=== PATIENT | male | born 1965 | race Caucasian/White ===

== ENCOUNTER 2022-03-11 16:16 | Inpatient (IN) | payer OTHER ==
[~2022-03-11] VITALS: Ht 180.3 cm; Wt 112.9 kg
[2022-03-11 16:17] VITALS: BP 156/68
--- NOTE | 2022-03-11 16:30 | NUR ---
BIBA BLS TO ER BED 4
[2022-03-11] MEDS ORDERED: MORPHINE SULFATE 4 MG/ML SYR IVP ONE ×2 (17:20→20:35)
[2022-03-11] MEDS ORDERED: ONDANSETRON 4 MG/2 ML VIAL IVP ONE (17:20)
[2022-03-11 17:26] LABS: BASOPHILS % (AUTO) 0.9 % (0.0-2.0); EOSINOPHILS # (AUTO) 0.2 K/uL (0-0.4); EOSINOPHILS % (AUTO) 3.8 % (0.0-4.0); HEMOGLOBIN 7.4 g/dL (12.0-18.0); LYMPHOCYTES # (AUTO) 1.9 K/uL (2.0-11.5); LYMPHOCYTES % (AUTO) 32.2 % (20.5-51.1); MEAN CORPUSCULAR HEMOGLOBIN 24 pg (27-31); MEAN CORPUSCULAR HGB CONC 32 g/dL (33-37); MEAN CORPUSCULAR VOLUME 75.1 fL (80-94); MONOCYTES # (AUTO) 0.4 K/uL (0.8-1.0); MONOCYTES % (AUTO) 6.4 % (1.7-9.3); NEUTROPHILS # (AUTO) 3.3 K/uL (1.8-7.7); NEUTROPHILS % (AUTO) 56.7 % (42.2-75.2); PLATELET COUNT (AUTO) 328 K/uL (140-450); RED BLOOD CELL COUNT(AUTO) 3.06 MIL/uL (4.20-6.10); RED CELL DISTRIBUTION WIDTH 22.6 % (11.6-13.7); WHITE BLOOD COUNT (AUTO) 5.8 K/uL (4.8-10.8)
--- NOTE | 2022-03-11 17:32 | NUR ---
Radiology at bedside.
--- NOTE | 2022-03-11 17:32 | NUR ---
Dr. Brown made aware that pt has a PICC line in place and that he ordered morphone and zofran for IV use. Dr. Brown stated "It is okay to use the PICC line for medications ordered".
--- NOTE | 2022-03-11 17:45 | NUR ---
56 y/o male biba with c/o of back pain. Patient has a history of chronic low back pain. Patient also has pain and swelling to abdominal sides. Patient is noted with edema to right lower extremity and swelling to AKA of left extremity. Patient has a PICC line in place. Medical History: DM, CHF, HTN, LEFT AKA ALLERGY: CIPROFLOXACIN
[2022-03-11 18:31] LABS: ALBUMIN 2.2 g/dL (3.4-5.0); ANION GAP 12.3 (8-16); CARBON DIOXIDE 27.6 mmol/L (21-32); POTASSIUM 3.9 mmol/L (3.5-5.1); TOTAL BILIRUBIN 3.6 mg/dL (0.0-1.0)
--- NOTE | 2022-03-11 18:38 | NUR ---
X-Ray at bedside
--- NOTE | 2022-03-11 18:53 | NUR ---
Dr. Dumont re-evaluating patient at bedside.
[2022-03-11] MEDS ORDERED: ALBUTEROL 0.083% 2.5 MG/3 ML NEBU INH ONE (19:00)
--- NOTE | 2022-03-11 19:02 | NUR ---
Obtained ALMAZ specimen, walked to lab.
[2022-03-11] MEDS ORDERED: FUROSEMIDE 100 MG/10 ML VIAL IVP ONE (19:05)
--- NOTE | 2022-03-11 19:06 | NUR ---
RT AT BEDSIDE PROVIDING PT A BREATHING TX.
--- NOTE | 2022-03-11 19:25 | NUR ---
Pt report given to YUDI Espinoza. Transfer of care at this time.
[2022-03-11] MEDS ORDERED: LEVA0.043 INH (20:27)
[2022-03-11] MEDS ORDERED: SENN-73 PO (20:27)
[2022-03-11] MEDS ORDERED: ZOLP5TAB1 PO (20:27)
[2022-03-11] MEDS ORDERED: VITA-16 PO (20:27)
[2022-03-11] MEDS ORDERED: DOCU-299 PO (20:27)
[2022-03-11] MEDS ORDERED: PRO5 PO (20:27)
[2022-03-11] MEDS ORDERED: ALBU-118 INH (20:27)
[2022-03-11] MEDS ORDERED: METF-352 PO (20:27)
[2022-03-11] MEDS ORDERED: TRAZ-343 PO (20:27)
[2022-03-11] MEDS ORDERED: NAFC1SOL1 IV (20:27)
[2022-03-11] MEDS ORDERED: FOLIC ACID PO (20:27)
[2022-03-11] MEDS ORDERED: SUCR1TAB6 PO (20:27)
[2022-03-11] MEDS ORDERED: ATOR20TA PO (20:27)
[2022-03-11] MEDS ORDERED: HYDR-5080 PO (20:27)
[2022-03-11] MEDS ORDERED: ASPI-1129 PO (20:27)
[2022-03-11] MEDS ORDERED: FERR325E14 PO (20:27)
[2022-03-11] MEDS ORDERED: LID5T TP (20:27)
[2022-03-11] MEDS ORDERED: FURO-570 PO (20:27)
[2022-03-11] MEDS ORDERED: LACT1CAP63 PO (20:27)
[2022-03-11] MEDS ORDERED: GLIM1TAB23 PO (20:27)
[2022-03-11] MEDS ORDERED: FLONAS NS (20:27)
[2022-03-11] MEDS ORDERED: [UNRECOGNIZED DRUG - CODE] IJ (20:27)
[2022-03-11] MEDS ORDERED: PANT40EC PO (20:27)
--- NOTE | 2022-03-11 21:00 | NUR ---
Patient will be admitted to care of DR. REIS. Admited to TELEMETRY. Will go to room 105 A. Belongings list completed. Report to KRUNAL.
--- NOTE | 2022-03-11 21:10 | NUR ---
PT WAS ADMIT TO [facility] UNIT FROM [facility]. PT DIAGNOSED WITH CHF AND CKD. PT IS AOX4, CAN VERBALIZE NEEDS AND ABLE TO FOLLOW COMMANDS. PT HAS ABOVE THE KNEE AMPUTATION AND BEDBOUND. PT HAS LEFT UPPER ARM PICC LINE. PT HAS EDEMA ON LEFT STUMP, RIGHT LOWER LEG AND BILATERAL SIDES. PT ORIENTED TO HOSPITAL/ROOM, BED BUTTONS, AND CALL LIGHT. ALL SAFETY MEASURES IMPLEMENTED. CALL LIGHT WITHIN REACH, BED WHEELS LOCKED AND LOW POSITION OF BED PLACED. WILL CONTINUE TO MONITOR THE PT.
[2022-03-11] MEDS ORDERED: DOCUSATE SODIUM 100 MG GELCAP PO PRN (22:20)
[2022-03-11] MEDS ORDERED: ONDANSETRON 4 MG/2 ML VIAL IM/IVP PRN (22:20)
[2022-03-11] MEDS ORDERED: HYDROcodone/APAP 7.5/325 MG 1 TAB PO PRN (22:20)
[2022-03-11] MEDS ORDERED: POTASSIUM CHLORIDE 10 MEQ TABER PO PRN (22:20)
[2022-03-11] MEDS ORDERED: ZOLPIDEM 5 MG TAB PO PRN (22:20)
[2022-03-11] MEDS ORDERED: ACETAMINOPHEN 325 MG TAB PO PRN (22:20)
[2022-03-11] MEDS ORDERED: guaiFENesin DM 200/20 MG-10 ML 10 ML UDC PO PRN (22:20)
[2022-03-11] MEDS ORDERED: DEXTROSE 50% 50 ML SYR IVP PRN (22:30)
[2022-03-11 23:34] LABS: PROTHROMBIN TIME 12.9 secs (10.8-13.4)
[2022-03-12] VITALS: BP 119/76
--- NOTE | 2022-03-12 | NUR ---
TROPONIN LEVEL 291, NOTIFIED DR. REIS WITH NEW ORDER OF HEPARIN 5,000 UNITS SUBCUTANEOUS. ORDER NOTED AND CARRIED OUT.
[2022-03-12 00:12] LABS: CHOL/HDL RATIO 4.1 (1-4.5); FREE T4 (FREE THYROXINE) 1.17 ng/dL (0.76-1.46); MAGNESIUM 1.8 mg/dL (1.8-2.4); PHOSPHORUS 3.2 mg/dL (2.5-4.9); THYROID STIMULATING HORMONE 0.75 uIU/mL (0.34-3.74)
[2022-03-12] MEDS: MORPHINE SULFATE 2 MG/ML SYR IVP PRN ×4 (00:30→18:30)
[2022-03-12 01:23] LABS: APPEARANCE,URINE CLEAR (CLEAR); BILIRUBIN,URINE NEGATIVE (NEGATIVE); BLOOD, URINE TRACE-I (NEGATIVE); COLOR,URINE YELLOW (YELLOW); LEUKOCYTE ESTERASE ,URINE 1+ (NEGATIVE); NITRITE, URINE POSITIVE (NEGATIVE); UGLUCOSE NEGATIVE (NEGATIVE)
[2022-03-12 01:28] LABS: RBC,URINE 0-5 /HPF (0-5); WBC,URINE 20-60 /HPF (0-5)
--- NOTE | 2022-03-12 01:30 | NUR ---
PT COMPLAIN FOR BACK PAIN, PRN PAIN MEDICATION PER MD ORDER WAS GIVEN. HEPARIN WAS ALSO GIVEN PER MD ORDER. PT TOLERATING IT WELL. ALL SAFETY MEASURES IMPLEMENTED. CALL REACH WITHIN REACH. WILL CONTINUE TO MONITOR THE PT.
[2022-03-12 01:36] LABS: BARBITURATE, URINE NEGATIVE ng/ml (NEG <=200); BENZODIAZEPINE, URINE NEGATIVE ng/mL (NEG <=200); CANNABINOID, URINE POSITIVE ng/mL (NEG <=50); COCAINE, URINE NEGATIVE ng/mL (NEG <=300); PHENCYCLIDINE SCREEN,URINE NEGATIVE ng/mL (NEG <=25)
[2022-03-12 01:37] LABS: OPIATE, URINE POSITIVE ng/mL (NEG <=2000)
[2022-03-12 04:00] VITALS: BP 125/80
--- NOTE | 2022-03-12 04:30 | NUR ---
PT IS ON SLEEP WITH CPAP. CHEST RISE AND FALL SYMMETRICALLY NOTED. RESPIRATION ARE EVEN AND UNLABORED SATING AT 98% WITH SINUS RHYTHM/1ST DEGREE AV BLOCK/ST DEPRESSION. CALL LIGHT WITHIN REACH. ALL SAFETY MEASURES IMPLEMENTED. WILL CONTINUE TO MONITOR THE PT.
[2022-03-12 05:47] LABS: BASOPHILS # (AUTO) 0.1 K/uL (0.00-0.22); BASOPHILS % (AUTO) 1.3 % (0.0-2.0); EOSINOPHILS # (AUTO) 0.3 K/uL (0-0.4); EOSINOPHILS % (AUTO) 4.2 % (0.0-4.0); HEMATOCRIT 24.2 % (36-52); HEMOGLOBIN 7.7 g/dL (12.0-18.0); LYMPHOCYTES # (AUTO) 2.1 K/uL (2.0-11.5); LYMPHOCYTES % (AUTO) 33.7 % (20.5-51.1); MEAN CORPUSCULAR HEMOGLOBIN 24 pg (27-31); MEAN CORPUSCULAR HGB CONC 32 g/dL (33-37); MEAN CORPUSCULAR VOLUME 76.4 fL (80-94); MONOCYTES # (AUTO) 0.6 K/uL (0.8-1.0); MONOCYTES % (AUTO) 8.7 % (1.7-9.3); NEUTROPHILS # (AUTO) 3.3 K/uL (1.8-7.7); NEUTROPHILS % (AUTO) 52.1 % (42.2-75.2); PLATELET COUNT (AUTO) 317 K/uL (140-450); RED BLOOD CELL COUNT(AUTO) 3.16 MIL/uL (4.20-6.10); RED CELL DISTRIBUTION WIDTH 22.7 % (11.6-13.7); WHITE BLOOD COUNT (AUTO) 6.3 K/uL (4.8-10.8)
--- NOTE | 2022-03-12 06:29 | NUR ---
PT COMPLAIN BACK PAIN WITH THE SCALE OF 8/10. PRN PAIN MEDICATION WAS GIVEN PER MD ORDER. PT TOLERATING IT WELL. WILL CONTINUE TO MONITOR.
[2022-03-12] MEDS: BLOOD GLUCOSE MONITORING 1 DEV DEV FS SCH ×4 (06:43→20:24)
--- NOTE | 2022-03-12 06:43 | NUR ---
PT BLOOD GLUCOSE IS 109. NO INSULIN COVERAGE NEEDED. ALL SAFETY MEASURES IMPLEMENTED. WILL CONTINUE TO MONITOR.
[2022-03-12 06:57] LABS: ANION GAP 15.4 (8-16); CARBON DIOXIDE 26.4 mmol/L (21-32); CREATININE 3.3 mg/dL (0.6-1.3); POTASSIUM 3.8 mmol/L (3.5-5.1)
--- NOTE | 2022-03-12 07:15 | NUR ---
Received SBAR report from night RN, all cares assumed. Pt resting in bed, awake and alert. Bed in low, locked position, call light within reach. Pt denies any needs at this time.
--- NOTE | 2022-03-12 07:16 | NUR ---
CHECKED ON PT. HE WAS CURRENTLY SLEEPING WITH HIS PERSONAL CPAP MACHINE BROUGHT IN FROM HOME. NO DISTRESS AND RESTING COMFORTABLY.
--- NOTE | 2022-03-12 07:20 | NUR ---
PT IS STABLE. ENDORSED PT TO MORNING SHIFT NURSE FOR THE CONTINUITY OF CARE.
[2022-03-12 08:00] VITALS: BP 129/77
[2022-03-12] MEDS ORDERED: GLIMEPIRIDE 2 MG TAB PO SCH (08:00)
[2022-03-12] MEDS: metFORMIN 500 MG TAB PO SCH ×2 (08:06→16:57)
[2022-03-12] MEDS: PANTOPRAZOLE 40 MG TABEC PO SCH (08:07)
[2022-03-12] MEDS ORDERED: ECOTRIN 81 MG TABEC PO SCH (09:00)
[2022-03-12] MEDS ORDERED: FUROSEMIDE 20 MG/2 ML VIAL IVP SCH (09:00)
[2022-03-12] MEDS ORDERED: GLIMEPIRIDE PO SCH (09:00)
[2022-03-12] MEDS ORDERED: METFORMIN HCL 1000 MG PO SCH (09:00)
--- NOTE | 2022-03-12 11:00 | NUR ---
SCREEN FOR LOW RADHA SCALE AT RISK, CONTINUE TO FOLLOW PRESSURE ULCER PREVENTION INTERVENTIONS. -TURN AND REPOSITION PATIENT Q 2H, ASSIST IF NEEDED -ASSESS AND MONITOR SKIN CONDITION DURING POSITION CHANGES -KEEP SKIN CLEAN AND DRY AT ALL TIMES.
[2022-03-12 12:00] VITALS: BP 130/78
[2022-03-12] MEDS: APIXABAN 2.5 MG TAB PO SCH ×2 (13:55→20:23)
[2022-03-12 16:00] VITALS: BP 121/78
[2022-03-12] MEDS: FUROSEMIDE 40 MG/4 ML VIAL IVP SCH (16:57)
[2022-03-12] MEDS: NAFCILLIN 1,000 MG in DEXTROSE 5% 50 ML IV SCH ×3 (17:54→23:13)
--- NOTE | 2022-03-12 19:39 | NUR ---
SBAR REPORT GIVEN TO LORNE BAGLEY, ALL CARES ENDORSED.
--- NOTE | 2022-03-12 19:45 | NUR ---
RECEIVED REPORT FROM AM RN FOR CONTINUITY OF CARE. PT IS STABLE IN BED. L STUMP WITH EDEMA AND DVT ELEVATED R LEG CELLULITIS ALSO UP ON A PILLOW. BLE WITH 2+ NON PITTING EDEMA.A&OX4 DENIES PAIN. ON RM AIR WITH NO APPARENT DISTRESS. RR EVEN AND UNLABORED. MAICOL PICC LINE SINGLE LUMEN IS PATENT. IV ABX UNIPENIM INFUSED WITH OUT DIFFICULTY. GI INTACT. ATE 100% OF DINNER. PT'S SKIN IS INTACT.PT IS BED BOUND BUT TURNS WITH MINIMAL ASSIST. AL SAFETY MEASURES IN PLACE. CALL LIGHT WITHIN REACH. WILL CONTINUE TO MONITOR.
[2022-03-12 20:00] VITALS: BP 150/74
[2022-03-12] MEDS: INSULIN LISPRO SLIDING SCALE 100 UNITS/ML VIAL SUBQ PRN (20:27)
[2022-03-12] MEDS: ATORVASTATIN 20 MG TAB PO SCH (20:28)
--- NOTE | 2022-03-12 21:00 | NUR ---
HS MEDS GIVEN. EG=678 COVERED WITH 2 UNITS HUMALOG INSULIN. PT INCONTINENT OF MODERATE STOOL. STOOL SAMPLE FOR OCCULT BLOOD SENT TO LAB. PARTIAL SPONGE BATH GIVEN. GOWN AND LINEN CHANGED. PT'S CPAP CONNECTED BY RT FOR THE NIGHT. PT C/O BACK PAIN 03/20. OFFERED NORCO PT SAID "I'LL WAIT FOR THE MORPHINE, IT HELPS ME SLEEP ALSO." PT COOPERATIVE WITH CARES. PT'S GI INTACT. SKIN IS INTACT. ALL SAFETY MEASURES IN PLACE. CALL LIGHT WITHIN REACH. FRANCIA CONTINUE TO MONITOR.
[2022-03-13] VITALS: BP 130/76
[2022-03-13] MEDS: MORPHINE SULFATE 2 MG/ML SYR IVP PRN ×4 (00:45→18:58)
--- NOTE | 2022-03-13 00:45 | NUR ---
MSO4 2MG/1ML GIVEN IVP WITH RELIEF. SLEEPING AFTER 20 MINUTES. FREQ ROUNDS. PT VOIDING PER URINAL CLEAR YELLOW TO LIGHT LLOYD URINE. CALL LIGHT WITHIN REACH. WILL CONTINUE TO MONITOR.
[2022-03-13 04:00] VITALS: BP 135/76
[2022-03-13] MEDS: NAFCILLIN 1,000 MG in DEXTROSE 5% 50 ML IV SCH ×5 (04:06→20:00)
[2022-03-13] MEDS: BLOOD GLUCOSE MONITORING 1 DEV DEV FS SCH ×4 (06:17→21:28)
--- NOTE | 2022-03-13 06:30 | NUR ---
BS= 103 NO INSULIN COVERAGE NEEDED. MSO4 2MG/1ML GIVEN IVP. MAICOL PICC LINE INTACT AND PATENT. PT AWAKE ,ALERT AND ABLE TO MAKE NEEDS KNOWN. NAD. CONTINUE TO MONITOR.
[2022-03-13 06:34] LABS: ANION GAP 14.5 (8-16); CARBON DIOXIDE 27.1 mmol/L (21-32); CREATININE 3.1 mg/dL (0.6-1.3); POTASSIUM 3.6 mmol/L (3.5-5.1)
[2022-03-13 06:37] LABS: HEMATOCRIT 24.2 % (36-52); HEMOGLOBIN 7.9 g/dL (12.0-18.0); MEAN CORPUSCULAR HEMOGLOBIN 25 pg (27-31); MEAN CORPUSCULAR HGB CONC 32 g/dL (33-37); MEAN CORPUSCULAR VOLUME 76.6 fL (80-94); PLATELET COUNT (AUTO) 320 K/uL (140-450); RED BLOOD CELL COUNT(AUTO) 3.16 MIL/uL (4.20-6.10); RED CELL DISTRIBUTION WIDTH 22.8 % (11.6-13.7); WHITE BLOOD COUNT (AUTO) 5.2 K/uL (4.8-10.8)
--- NOTE | 2022-03-13 07:19 | NUR ---
ENDORSED REPORT TO AM RN FOR CONTINUITY OF CARE, PT IS STABLE. ALL NEEDS MET THROUGHOUT THE SHIFT.
--- NOTE | 2022-03-13 07:20 | NUR ---
RECEIVED PT FROM NIGHT RN, PT IS ON A CPAP LYING ON THE BED WITH SIDE RAILS UP AND CALL LIGHT WITHIN REACH, PT HAS A SUPRIYA PICC LINE SINGLE LUMEN ON SALINE LOCK, PT HAS A LEFT BKA NOTED, NO SIGN OF DISTRESS NOTED AND WILL CONTINUE TO MONITOR PT.
[2022-03-13 07:43] LABS: BASOPHILS % (MANUAL) 0 % (0-2); EOSINOPHILS % (MANUAL) 3 % (0-4); LYMPHOCYTES % (MANUAL) 27 % (20-46); MONOCYTES % (MANUAL) 10 % (5-12)
[2022-03-13 08:00] VITALS: BP 138/83
[2022-03-13 08:07] LABS: FOLIC ACID 11.6 ng/mL (>3.0); T4 (THYROXINE) 4.6 ug/dL (4.5-12.0)
--- NOTE | 2022-03-13 08:39 | NUR ---
PATIENT HAS BEEN SCREENED AND CATEGORIZED MODERATE NUTRITION RISK. PATIENT WILL BE SEEN WITHIN 3-5 DAYS OF ADMISSION. 03/12/22-03/16/[address]
[2022-03-13] MEDS: GLIMEPIRIDE 2 MG TAB PO SCH (09:12)
[2022-03-13] MEDS: PANTOPRAZOLE 40 MG TABEC PO SCH (09:12)
[2022-03-13] MEDS: metFORMIN 500 MG TAB PO SCH ×2 (09:12→16:55)
[2022-03-13] MEDS: FUROSEMIDE 40 MG/4 ML VIAL IVP SCH ×2 (09:14→16:55)
--- NOTE | 2022-03-13 09:14 | NUR ---
PT WAS GIVEN THE SCHEDULED AM MEDICATIONS NOW, PARAMETERS CHECKED AND TOLERATED, WILL MONITOR PT.
[2022-03-13] MEDS: APIXABAN 2.5 MG TAB PO SCH ×2 (09:15→20:59)
[2022-03-13 12:00] VITALS: BP 137/79
--- NOTE | 2022-03-13 12:50 | NUR ---
PT COMPLAINED OF PAIN RATE OF 8/10 ON HIS BACK AND WAS MEDICATED AT THIS TIME.
[2022-03-13 16:00] VITALS: BP 142/80
--- NOTE | 2022-03-13 16:55 | NUR ---
PT WAS GIVEN THE SCHEDULED MEDICATIONS NOW VIA IVP AND IVPB AND ORAL.
[2022-03-13] MEDS: INSULIN LISPRO SLIDING SCALE 100 UNITS/ML VIAL SUBQ PRN (18:55)
[2022-03-13 20:00] VITALS: BP 145/79
[2022-03-13] MEDS: ATORVASTATIN 20 MG TAB PO SCH (20:57)
[2022-03-14] VITALS: BP 142/80
[2022-03-14] MEDS: NAFCILLIN 1,000 MG in DEXTROSE 5% 50 ML IV SCH ×7 (00:37→23:58)
[2022-03-14] MEDS: MORPHINE SULFATE 2 MG/ML SYR IVP PRN ×4 (01:17→21:06)
--- NOTE | 2022-03-14 01:17 | NUR ---
PT COMPLAINTS OF PAIN 7/10 ON ABDOMINAL AREA, PAIN MEDS ADMINISTERED ORDERED.
[2022-03-14] MEDS ORDERED: ALBUTEROL SULFATE/IPRATROPIU 3 ML SOL IH ONE (02:21)
[2022-03-14 04:00] VITALS: BP 136/77
[2022-03-14] MEDS: BLOOD GLUCOSE MONITORING 1 DEV DEV FS SCH ×4 (06:40→20:39)
[2022-03-14 07:02] LABS: ANION GAP 14.8 (8-16); CARBON DIOXIDE 27.7 mmol/L (21-32); POTASSIUM 3.5 mmol/L (3.5-5.1)
[2022-03-14 07:20] LABS: BASOPHILS # (AUTO) 0.1 K/uL (0.00-0.22); BASOPHILS % (AUTO) 1.2 % (0.0-2.0); EOSINOPHILS # (AUTO) 0.3 K/uL (0-0.4); EOSINOPHILS % (AUTO) 5.5 % (0.0-4.0); HEMATOCRIT 25.1 % (36-52); LYMPHOCYTES % (AUTO) 20.5 % (20.5-51.1); MEAN CORPUSCULAR HEMOGLOBIN 24 pg (27-31); MEAN CORPUSCULAR HGB CONC 32 g/dL (33-37); MONOCYTES # (AUTO) 0.6 K/uL (0.8-1.0); MONOCYTES % (AUTO) 13.4 % (1.7-9.3); NEUTROPHILS # (AUTO) 2.8 K/uL (1.8-7.7); NEUTROPHILS % (AUTO) 59.4 % (42.2-75.2); PLATELET COUNT (AUTO) 345 K/uL (140-450); RED CELL DISTRIBUTION WIDTH 22.7 % (11.6-13.7); WHITE BLOOD COUNT (AUTO) 4.7 K/uL (4.8-10.8)
--- NOTE | 2022-03-14 07:20 | NUR ---
RECEIVED REPORT FROM NIGHTSHIFT NURSE FOR CONTINUITY OF CARE. PLAN OF CARE DISCUSSED. PT IN STABLE CONDITION, A/OX4 AND CURRENTLY AWAKE. BREATHING IS EVEN, REGULAR AND EVEN, CPAP AT THE BEDSIDE. CONTINENT OF THE BOWEL AND BLADDER. SKIN IS INTACT, PT COMPLAINING OF PAIN 8/10 IN HIS BACK AND REQUESTED PAIN MEDICATION.
[2022-03-14 08:00] VITALS: BP 140/82
[2022-03-14] MEDS: FUROSEMIDE 40 MG/4 ML VIAL IVP SCH ×2 (08:27→17:37)
[2022-03-14] MEDS: PANTOPRAZOLE 40 MG TABEC PO SCH (08:28)
[2022-03-14] MEDS: metFORMIN 500 MG TAB PO SCH (08:31)
[2022-03-14] MEDS: APIXABAN 2.5 MG TAB PO SCH ×2 (08:38→20:38)
[2022-03-14] MEDS: GLIMEPIRIDE 2 MG TAB PO SCH (08:43)
[2022-03-14] MEDS ORDERED: FERROUS SULFATE 325 MG TABEC PO SCH (09:00)
--- NOTE | 2022-03-14 09:50 | NUR ---
PT REQUESTED BREATHING TREATMENT FROM RT. RT PAGED TO THE BEDSIDE.
[2022-03-14] MEDS: ALBUTEROL SULFATE/IPRATROPIU 3 ML SOL IH PRN ×2 (10:45→19:49)
[2022-03-14] MEDS: INSULIN LISPRO SLIDING SCALE 100 UNITS/ML VIAL SUBQ PRN (11:25)
--- NOTE | 2022-03-14 12:00 | NUR ---
PT VISUALLY ASSESSED. IN STABLE CONDITION.
--- NOTE | 2022-03-14 14:58 | NUR ---
PT COMPLAINED OF PAIN IN LOWER BACK. MEDICATED PRN MORPHINE.
--- NOTE | 2022-03-14 16:00 | NUR ---
PT VISUALLY ASSESSED. IN STABLE CONDITION.
--- NOTE | 2022-03-14 16:20 | NUR ---
03/14/2022 RD INITIAL ASSESSMENT COMPLETED. PLEASE REFER TO NUTRITION ASSESSMENT UNDER CARE ACTIVITY FOR ESTIMATED NUTRITIONAL NEEDS. 1.CONTINUE WITH CARDIAC DIET TOLERATED. 2.MONITOR NUTRITION RELATED LABS. 3.RD TO FOLLOW-UP IN 5-7 DAYS PATIENT IS LOW RISK. RINKU HERNANDEZ, RD
--- NOTE | 2022-03-14 18:00 | NUR ---
PT VISUALLY ASSESSED. IN STABLE CONDITION.
--- NOTE | 2022-03-14 19:45 | NUR ---
RECEIVED ENDORSEMENT FROM DAY SHIFT NURSE FOR CONTINUITY OF PT CARE.
--- NOTE | 2022-03-14 19:53 | NUR ---
ENDORSED PT TO NIGHTSHIFT NURSE FOR CONTINUITY OF CARE. PT IN STABLE CONDITION.
[2022-03-14 20:00] VITALS: BP 148/76
[2022-03-14] MEDS: ATORVASTATIN 20 MG TAB PO SCH (20:39)
--- NOTE | 2022-03-14 21:06 | NUR ---
PT COMPLAINTS OF BACK PAIN 03/20, PAIN MEDS ADMINISTERED ORDERED.
--- NOTE | 2022-03-14 22:06 | NUR ---
PT IS AWAKE AND WATCH TV, VERBALIZED PAIN IS CONTROLLED.
[2022-03-15] MEDS: MORPHINE SULFATE 2 MG/ML SYR IVP PRN ×3 (03:12→15:07)
--- NOTE | 2022-03-15 03:12 | NUR ---
PT COMPLAINTS OF BACK PAIN 8/10 AND RIGHT ABDOMINAL DISCOMFORT, PAIN MEDICATION ADMINISTERED ORDERED.
[2022-03-15] MEDS: NAFCILLIN 1,000 MG in DEXTROSE 5% 50 ML IV SCH ×4 (03:53→16:24)
[2022-03-15 04:00] VITALS: BP 136/83
--- NOTE | 2022-03-15 04:12 | NUR ---
PT IS ASLEEP.
[2022-03-15] MEDS: BLOOD GLUCOSE MONITORING 1 DEV DEV FS SCH ×3 (06:42→16:28)
--- NOTE | 2022-03-15 06:42 | NUR ---
PT IS AWAKEN FOR BLOOD SUGAR CHECK. BLOOD SUGAR THIS AM = 97, NO COVERAGE.
[2022-03-15 06:56] LABS: ANION GAP 11.7 (8-16); CARBON DIOXIDE 30.8 mmol/L (21-32); CREATININE 2.8 mg/dL (0.6-1.3); POTASSIUM 3.5 mmol/L (3.5-5.1)
[2022-03-15 08:00] VITALS: BP 138/87
--- NOTE | 2022-03-15 08:00 | NUR ---
RECEIVE ENDORSEMENT FROM PM SHIFT NURSE THAT PATIENT IS REST IN BED, PICC MAICOL TKO INFUSING. WILL CONTINUE TO MONITOR
[2022-03-15] MEDS: ALBUTEROL SULFATE/IPRATROPIU 3 ML SOL IH PRN (08:32)
[2022-03-15] MEDS: GLIMEPIRIDE 2 MG TAB PO SCH (08:36)
[2022-03-15] MEDS: APIXABAN 2.5 MG TAB PO SCH (08:39)
[2022-03-15] MEDS: PANTOPRAZOLE 40 MG TABEC PO SCH (08:40)
[2022-03-15] MEDS: FUROSEMIDE 40 MG/4 ML VIAL IVP SCH ×2 (08:41→16:43)
[2022-03-15 09:20] LABS: BASOPHILS % (AUTO) 0.9 % (0.0-2.0); EOSINOPHILS # (AUTO) 0.2 K/uL (0-0.4); EOSINOPHILS % (AUTO) 5.4 % (0.0-4.0); HEMATOCRIT 24.6 % (36-52); HEMOGLOBIN 7.9 g/dL (12.0-18.0); LYMPHOCYTES % (AUTO) 23.3 % (20.5-51.1); MEAN CORPUSCULAR HEMOGLOBIN 25 pg (27-31); MEAN CORPUSCULAR HGB CONC 32 g/dL (33-37); MEAN CORPUSCULAR VOLUME 76.1 fL (80-94); MONOCYTES # (AUTO) 0.6 K/uL (0.8-1.0); MONOCYTES % (AUTO) 13.3 % (1.7-9.3); NEUTROPHILS # (AUTO) 2.5 K/uL (1.8-7.7); NEUTROPHILS % (AUTO) 57.1 % (42.2-75.2); PLATELET COUNT (AUTO) 314 K/uL (140-450); RED BLOOD CELL COUNT(AUTO) 3.23 MIL/uL (4.20-6.10); RED CELL DISTRIBUTION WIDTH 24.3 % (11.6-13.7); WHITE BLOOD COUNT (AUTO) 4.4 K/uL (4.8-10.8)
--- NOTE | 2022-03-15 10:30 | NUR ---
RECEIVE D/C ORDER AND TALKED TO PATIENT'S SPOUSE, FIND OUT ALEM PATIENT ID FROM [facility] ([phone]). WILL F/U D/C ORDER AND CALL FACILITY FOR TRANSPORT PATIENT BACK TO FACILITY.
[2022-03-15] MEDS: INSULIN LISPRO SLIDING SCALE 100 UNITS/ML VIAL SUBQ PRN ×2 (11:58→16:30)
--- NOTE | 2022-03-15 15:51 | NUR ---
DC PLANNING: CM SPOKE WITH PT'S AND PATIENT DISCUSSED THE DC PLAN TO ANOTHER SNF PER PATIENT IT WAS A MISS UNDERSTANDING AND WOULD LIKE TO GO BACK TO [facility]. SPOKE WITH MAGGIE AT [facility] , SHE PROVIDED THE AUTH NUMBER FOR TRANSPORT [id number]. CALLED [facility] SPOKE WITH ANTON STATED ACCEPTED PATIENT CAN GO TO ROOM 7A # TO GIVE REPORT [phone]. ARRANGED TRANSPORT WITH [facility] TIME 6 PM. NOTIFIED MCKENZIE BAGLEY.
[2022-03-15 16:00] VITALS: BP 127/84
[2022-03-15 17:07] VITALS: BP 127/84
--- NOTE | 2022-03-15 17:59 | NUR ---
D/C PATIENT BACK TO [facility] PER PCP ORDER. PATIENT STABLE, VITAL WNL, PAIN MEDICATION GIVEN, D/C CONSENT SIGNED, ARM BAND REMOVED. PATIENT WILL RETURN HIS CARE FACILITY WITH PICC WHICH IS USE FOR ANTIBIOTIC TREATMENT. AT THIS TIME, PATIENT IS WAITING [facility] TRANSPORTATION PICK HIM UP AND BRING PATIENT BACK TO [facility].
--- NOTE | 2022-03-15 18:22 | NUR ---
[facility] IS HERE, PATIENT IS STABLE TO BE TRANSFER. ENDORSEMENT GIVE TO [place] STAFF, MADY
== END 2022-03-15 18:40 | DRG 280 ==
LOC: MED 16:16 → MTU 20:27
PROVIDERS: ADMIT Family Medicine; ATTEND Family Medicine
PROC: 05HY33Z Insertion of Infusion Device into Upper Vein, Percutaneous Approach (ICD-10-PCS; principal; 2022-03-14)
DX: I11.0 Hypertensive heart disease with heart failure (principal); E43 Unspecified severe protein-calorie malnutrition; I21.A1 Myocardial infarction type 2; I50.43 Acute on chronic combined systolic (congestive) and diastolic (congestive) heart failure; N17.0 Acute kidney failure with tubular necrosis; I82.402 Acute embolism and thrombosis of unspecified deep veins of left lower extremity; G89.29 Other chronic pain; M54.9 Dorsalgia, unspecified; Z20.822 Contact with and (suspected) exposure to COVID-19; G47.30 Sleep apnea, unspecified; I25.10 Atherosclerotic heart disease of native coronary artery without angina pectoris; E78.5 Hyperlipidemia, unspecified; J44.9 Chronic obstructive pulmonary disease, unspecified; E66.01 Morbid (severe) obesity due to excess calories; Z86.718 Personal history of other venous thrombosis and embolism; Z79.01 Long term (current) use of anticoagulants; Z68.34 Body mass index [BMI] 34.0-34.9, adult
CPT/HCPCS: 36415; 71045; 80048; 80053; 80305; 81001; 82150; 82272; 82607; 82728; 82746; 82948; 83036; 83540; 83690; 83735; 83880; 84100; 84436; 84439; 84443; 84479; 84484; 85025; 85045; 85610; 85730; 87081; 87086; 93005; 93970; 94640; 96374; 96375; 96376; 99291; 99292; J1644; J1815; J1940; J2270; J2405; J3490; J7060; J7613; Q0092

== ENCOUNTER 2022-03-31 22:06 | Inpatient (IN) | payer OTHER ==
[~2022-03-31] VITALS: Ht 177.8 cm; Wt 161.9 kg
[~2022-03-31 22:06] MED LIST: ALBU-118 INH; ASPI-1129 PO; ATOR20TA PO; DOCU-299 PO; FERR325E14 PO; FLONAS NS; FOLIC ACID PO; FURO-570 PO; GLIM1TAB23 PO; HYDR-5080 PO; LACT1CAP63 PO; LEVA0.043 INH; LID5T TP; METF-352 PO; NAFC1SOL1 IV; PANT40EC PO; PRO5 PO; SENN-73 PO; SUCR1TAB6 PO; TRAZ-343 PO; VITA-16 PO; ZOLP5TAB1 PO; [UNRECOGNIZED DRUG - CODE] IJ
--- NOTE | 2022-03-31 22:12 | NUR ---
STEPHANIA KERNS TAKEN TO BED #2
[2022-03-31 22:15] VITALS: BP 136/79
[2022-03-31] MEDS ORDERED: FUROSEMIDE 40 MG/4 ML VIAL IVP ONE (22:15)
[2022-03-31] MEDS ORDERED: MORPHINE SULFATE 4 MG/ML SYR IVP ONE (22:15)
--- NOTE | 2022-03-31 22:15 | NUR ---
STEPHNAIA FROM [facility] WITH C/O SOB WITH H/O CHF. RESPIRATIONS NOW ARE REGULAR AND UNLABORED. SKIN IS WARM AND DRY. PMH : CHF, DVT, ANEMIA, LA, DM, HTN, COPD, GERD
--- NOTE | 2022-03-31 22:28 | NUR ---
EKG IN PROGRESS
[2022-03-31 22:36] LABS: BASOPHILS % (AUTO) 1.6 % (0.0-2.0); EOSINOPHILS # (AUTO) 0.3 K/uL (0-0.4); EOSINOPHILS % (AUTO) 12.4 % (0.0-4.0); LYMPHOCYTES # (AUTO) 0.5 K/uL (2.0-11.5); LYMPHOCYTES % (AUTO) 16.4 % (20.5-51.1); MEAN CORPUSCULAR HEMOGLOBIN 25 pg (27-31); MEAN CORPUSCULAR HGB CONC 31 g/dL (33-37); MEAN CORPUSCULAR VOLUME 79.4 fL (80-94); MONOCYTES # (AUTO) 0.4 K/uL (0.8-1.0); MONOCYTES % (AUTO) 16.2 % (1.7-9.3); NEUTROPHILS # (AUTO) 1.5 K/uL (1.8-7.7); NEUTROPHILS % (AUTO) 53.4 % (42.2-75.2); PLATELET COUNT (AUTO) 188 K/uL (140-450); RED BLOOD CELL COUNT(AUTO) 3.65 MIL/uL (4.20-6.10); WHITE BLOOD COUNT (AUTO) 2.8 K/uL (4.8-10.8)
[2022-03-31 23:12] LABS: ALBUMIN 2.5 g/dL (3.4-5.0); ANION GAP 20.8 (8-16); CARBON DIOXIDE 22.9 mmol/L (21-32); CREATININE 3.5 mg/dL (0.6-1.3); POTASSIUM 4.7 mmol/L (3.5-5.1)
[2022-04-01] MEDS ORDERED: MORPHINE SULFATE 4 MG/ML SYR IVP ONE (00:35)
--- NOTE | 2022-04-01 00:50 | NUR ---
PER DR. TORRES ORDER, PT WAS PLACED ON CPAP FOR YOGESH. PER PT HE USES CPAP OF 15 cmH20 IN THE HOUSE. PLACED PT ON 15 cmH20 WITH ADEQUATE EXHALE VOLUMES. PT IS TOILERATING WELL AT THIS TIME. WILL CONTINUE TO MONITOR PT.
[2022-04-01 00:58] VITALS: BP 100/135
[2022-04-01] MEDS ORDERED: ASPIRIN 325 MG TAB PO ONE (01:00)
--- NOTE | 2022-04-01 01:11 | NUR ---
PLACED PT ON CPAP FOR YOGESH PER DR. TORRES. PT STATED HE USES CPAP OF 15 cmH20.
[2022-04-01] MEDS ORDERED: DOCUSATE SODIUM 100 MG GELCAP PO PRN (02:20)
[2022-04-01] MEDS ORDERED: ACETAMINOPHEN 325 MG TAB PO PRN (02:20)
[2022-04-01] MEDS ORDERED: HYDROcodone/APAP 7.5/325 MG 1 TAB PO PRN (02:20)
[2022-04-01] MEDS ORDERED: POTASSIUM CHLORIDE 10 MEQ TABER PO PRN (02:20)
[2022-04-01] MEDS ORDERED: ONDANSETRON 4 MG/2 ML VIAL IM/IVP PRN (02:20)
[2022-04-01] MEDS ORDERED: guaiFENesin DM 200/20 MG-10 ML 10 ML UDC PO PRN (02:20)
[2022-04-01] MEDS ORDERED: ALBUTEROL HFA MDI 90 MCG/ACTUATION 8 GM INH PRN (02:25)
[2022-04-01] MEDS ORDERED: DOCUSATE SODIUM 100 MG GELCAP PO SCH (02:25)
[2022-04-01] MEDS ORDERED: DEXTROSE 50% 50 ML SYR IVP PRN (02:35)
[2022-04-01 03:09] LABS: MAGNESIUM 2.4 mg/dL (1.8-2.4)
--- NOTE | 2022-04-01 03:49 | NUR ---
AWAKE, VOIDING PER URINAL. WATER GIVEN
--- NOTE | 2022-04-01 06:00 | NUR ---
RESTING IN BED WITH EYES CLOSED. RESPIRATIONS REGULAR AND UNLABORED. PT REMAINS ON C-PAP, TOLERATING WELL
--- NOTE | 2022-04-01 06:55 | NUR ---
C/O PAIN RATED 8/10, MEDICATED ORDERED
--- NOTE | 2022-04-01 07:33 | NUR ---
RECIEVED REPORT FROM YUDI WATSON.
[2022-04-01] MEDS: APIXABAN 2.5 MG TAB PO SCH ×3 (07:38→21:54)
[2022-04-01] MEDS: BLOOD GLUCOSE MONITORING 1 DEV DEV FS SCH ×4 (07:42→21:52)
[2022-04-01] MEDS ORDERED: PANTOPRAZOLE 40 MG TABEC PO SCH (09:00)
[2022-04-01] MEDS ORDERED: FUROSEMIDE 40 MG/4 ML VIAL IVP SCH (09:00)
[2022-04-01] MEDS ORDERED: NAFCILLIN 2,000 MG VIAL IV SCH (09:00)
[2022-04-01] MEDS: PANTOPRAZOLE 40 MG TABEC PO SCH ×2 (09:00→20:36)
[2022-04-01] MEDS ORDERED: NAFCILLIN 2,000 MG in DEXTROSE 5% 100 ML IV SCH (09:00)
--- NOTE | 2022-04-01 10:00 | NUR ---
PT DID NOT WANT TO EAT HIS BREAKFAST EXCEPT OAna
--- NOTE | 2022-04-01 10:03 | NUR ---
PATIENT HAS BEEN SCREENED AND CATEGORIZED MODERATE NUTRITION RISK. PATIENT WILL BE SEEN WITHIN 3-5 DAYS OF ADMISSION. / ENRIQUE MATTHEWS RD
[2022-04-01] MEDS: SUCRALFATE 1 GM TAB PO SCH ×4 (10:19→20:34)
[2022-04-01] MEDS: FERROUS SULFATE 325 MG TABEC PO SCH (10:19)
[2022-04-01] MEDS: ECOTRIN 81 MG TABEC PO SCH (10:20)
[2022-04-01] MEDS: MORPHINE SULFATE 2 MG/ML SYR IVP PRN ×2 (10:30→15:30)
--- NOTE | 2022-04-01 12:00 | NUR ---
PT URINATED VIA URINAL. PT GIVEN WATER. PT COMPLAINING OF PAIN INFORMED IT WAS NOT TIME FOR MEDS. ALL PT NEEDS MEET AT THIS TIME
[2022-04-01 12:02] LABS: BASOPHILS # (AUTO) 0.1 K/uL (0.00-0.22); BASOPHILS % (AUTO) 2.4 % (0.0-2.0); EOSINOPHILS # (AUTO) 0.5 K/uL (0-0.4); EOSINOPHILS % (AUTO) 18.5 % (0.0-4.0); HEMATOCRIT 29.5 % (36-52); HEMOGLOBIN 9.3 g/dL (12.0-18.0); LYMPHOCYTES # (AUTO) 0.6 K/uL (2.0-11.5); LYMPHOCYTES % (AUTO) 21.5 % (20.5-51.1); MEAN CORPUSCULAR HEMOGLOBIN 25 pg (27-31); MEAN CORPUSCULAR HGB CONC 31 g/dL (33-37); MEAN CORPUSCULAR VOLUME 79.5 fL (80-94); MONOCYTES # (AUTO) 0.4 K/uL (0.8-1.0); MONOCYTES % (AUTO) 14.8 % (1.7-9.3); NEUTROPHILS # (AUTO) 1.2 K/uL (1.8-7.7); NEUTROPHILS % (AUTO) 42.8 % (42.2-75.2); PLATELET COUNT (AUTO) 193 K/uL (140-450); RED BLOOD CELL COUNT(AUTO) 3.71 MIL/uL (4.20-6.10); RED CELL DISTRIBUTION WIDTH 26.3 % (11.6-13.7); WHITE BLOOD COUNT (AUTO) 2.9 K/uL (4.8-10.8)
[2022-04-01 12:16] LABS: ANION GAP 20.5 (8-16); CREATININE 3.4 mg/dL (0.6-1.3); POTASSIUM 4.5 mmol/L (3.5-5.1)
--- NOTE | 2022-04-01 13:12 | NUR ---
DC PLANNING: THE PATIENT PRESENTED FROM [facility] WITH C/O PROGRESSIVE SOB. H/O CHF, ASTHMA, CVA, DM HTN, LA, COPD, DM, L BKA, CKD AND GERD. CR 3.5, BNP 1570, TROPONINS 314 AND 299, GAP 20.8. CXR SHOWS CARDIOMEGALY, EKG WITH LBBB, NOTED TO HAVE RALES AT LUNG BASES ON EXAM. BLE EDEMA NOTED, GIVEN LASIX 40 MG IV X 1 IN ED. ORDERS FOR CONSULTS WITH NEPHROLOGY, ID AND CARDIOLOGY, ON NAFCILLIN, LASIX IV BID. BLOOD CULTURES ORDERED. ROOPA SPOKE WITH THE PATIENTS [place] BY PHONE AND CONFIRMED THAT THE PATIENT HAS BEEN RESIDING AT [facility]. THE STATES THAT SHE DOES NOT WANT HIM TO RETURN TO THIS SNF THEY ARE NOT GIVING HIM THE SAME LASIX DOSE THAT HE WAS DC'D FROM THE HOSPITAL. CM ENDORSED PROCESS OF APPROVAL BY HIS INSURANCE TO GO TO ANOTHER SNF AND ENDORSED THE [facility] CONTRACTED SNF OPTIONS. GEOR[place]IANA STATES THAT SHE HAS NO PREFERENCE FOR SNF LONG IT'S NOT [facility]. SHE STATES THAT THE PATIENT WAS RECEIVING P.T. AND O.T. AT SNF. ROOPA THEN SPOKE WITH MAGGIE AT [facility] ([phone]) WHO GAVE SNF CHOICES OF [facility], [facility], [facility], [place], [facility] AND [facility]. ORDER FOR DC TO [facility] AND P.T. NOTES WOULD HAVE TO BE SUBMITTED TO [facility] FOR REVIEW AND APPROVAL BY THEIR CARTOGRAPHIC DRAFTER, THE [facility] NUMBER CAN BE CALLED ON THE WEEKEND IT HAS INFORMATION ON AFTER HOURS AND WEEKEND CASE MANAGEMENT COVERAGE. ROOPA ALSO SPOKE WITH JANE AT [facility] TO ENDORSE THE PATIENTS FRUSTRATIONS REGARDING CARE AND LACK OF COMMUNICATION, JANE WILL ASK HER DON TO SPEAK WITH THE . ROOPA WILL FOLLOW. Addendum: 04/06/22 at 1314 by Negra Recio RN DC PLANNING: PATIENT REFUSED TO GO BACK TO [facility] STATED NOT HAPPY WITH THE CARE AND FEELS NOT STABLE FOR DISCHARGE. ELEN SOARES SPOKE WITH PATIENT DISCUSSED THE ISSUES AND CONCERNS ANSWERED ALL QUESTIONS. PATIENT AGREED TO GO BACK TO ANOTHER CONTRACTED FACILITY. CALLED [facility] SPOKE WITH MAGGIE STATED SHE HAS TO REVIEW AND SUBMITTED TO HER CARTOGRAPHIC DRAFTER. FAXED ALL THE PAPERWORK TO [facility]. RECEIVED A CALL FROM JIGNESH AT [facility] STATED THEY CAN ACCEPT PATIENT ND REQUESTING TO GET AUTH FROM THE INSURANCE FOR BARIATRIC BED. AWAITING FOR [facility] TO APPROVE IT. CM TO FOLLOW Addendum: 04/06/22 at 1530 by Negra Recio RN DC PLANNING: ROOPA MET WITH PATIENT NOTIFIED HIM THAT [facility] IS ACCEPTING AND TO ORDERING BARIATRIC BED HOW EVER PATIENT STATED HE IS NOT READY TODAY AND WANTED TO LEAVE TOMORROW. NOTIFIED INSURANCE [facility] AND DR REIS. ROOPA TO FOLLOW Addendum: 04/08/22 at 1158 by Negra Recio RN LATE ENTRY 04/07/22 RECEIVED A CALL FROM KRISTOPHER CROWLEY [facility] STATED THEY CAN NOT TAKE PATIENT BECAUSE THEY DON'T HAVE A ROOM TO ACCOMMODATE THE BARIATRIC BED. NOTIFIED AND FAU[facility]. CM TO FOLLOW Addendum: 04/08/22 at 1201 by Negra Recio RN DC PLANNING: RECEIVED A CALL FROM MAGGIE CROWLEY [facility] STATED TO FAX TO ANY SNF THAT CAN ACCEPT PATIENT. FAXED TO [facility], [facility], [facility], [facility], [facility], [facility] AND [facility]EL [facility]. CM TO FOLLOW Addendum: 04/08/22 at 1348 by Negra Recio RN DC PLANNING: RECEIVED A CALL FROM [facility] SPOKE WITH KE[facility]EN STATED THEY CAN NOT TAKE PATIENT BECAUSE OF WEIGHT 357LBS. SANTINOGIDEON DELGADILLO SPOKE WITH AGUSTIN LOU BED AVAILABLE AT THIS TIME TO TRY CHECK NEXT WEEK. CM TO FOLLOW Addendum: 04/08/22 at 1533 by Negra Recio RN DC PLANNING: [facility] STATED DON DECLINE PATIENT BECAUSE OF HIS WEIGHT CM TO FOLLOW Addendum: 04/11/22 at 1244 by Negra Recio RN DC PLANNING: RECEIVED A CALL FROM [facility] SPOKE WITH NADEEN STATED NO BED AVAILABLE. AWAITING FROM [facility]. CM TO FOLLOW Addendum: 04/11/22 at 1642 by Negra Recio RN DC PLANNING: CM MET WITH PATIENT AND HIS DISCUSSED THE DISCHARGE PLAN. NOTIFIED THEM SO FAR NO BED AVAILABLE IN [facility] AND REQUESTING IN [facility]. PATIENT AGREED ,[facility]XED [facility], [facility] CM TO FOLLOW Addendum: 04/12/22 at 1521 by Negra Recio RN DC PLANNING: CALLED [facility] SPOKE WITH ALVIN STATED NO BED AVAILABLE LY FROM [facility] NO MALE BED AVAILABLE. CALLED MAGGIE NOTIFIED HER THAT NO SNF IS ACCEPTING PATIENT, SHE SUBMITTED TO DIFFICULT PLACEMENT DEPT. SHE REQUESTED PT FLY FAXED TO [facility] BLAS TO FOLLOW Addendum: 04/13/22 at 1147 by Negra Recio RN DC PLANNING: [facility] NO [facility]ED AV[facility]ABLE. CALLED [facility] SPOKE WITH MAGGIE BLAS NOTIFIED HER THAT WE ARE UNABLE TO GET ANY ACCEPTING FACILITY. PER MAGGIE SHE WILL FOLLOW UP WITH [facility] IF THEY ARE WILLING TO TAKE BACK PATIENT. CM TO FOLLOW Addendum: 04/14/22 at 1235 by Negra Recio RN DC PLANNING: SPOKE WITH PATIENT FEELS MUCH BETTER SINCE YESTERDAY PARTICIPATED WITH PHYSICAL THERAPY AND AGREED TO GO HOME WITH HOME HEALTH. PT REQUESTED BARIATRIC WHEELCHAIR, WALKER WITH SEAT AND BED SIDE COMMODE. FAXED TO [facility]. CALLED [facility] SPOKE WITH MAGGIE NOTIFIED HER PT NEEDS IV ABX NAFCILLIN 2GM Q4HRS FOR 10 MORE DAYS. FAXED THE ORDER. PER MAGGIE WILL ARRANGE HOME HEALTH AND [facility]. CM TO FOLLOW. Addendum: 04/15/22 at 1127 by Negra Recio RN DC PLANNING CALLED [facility] CM SPOKE WITH MAGGIE STATED [employer] [facility] [employer] WILL BE DELIVERING THE NAFCILLIN IV ABX . SHE ALSO PROVIDE THE [id number] . CALLED [facility] STATED THEY DON'T HAVE BARIATRIC TRANSPORT. CALLED MAGGIE NOTIFIED HER, SHE STATED PATIENT HAS NO BENEFIT TO TRANSPORT TO HOME. HOWEVER WILL SUBMIT TO HER CARTOGRAPHIC DRAFTER. CM TO FOLLOW Addendum: 04/15/22 at 1651 by Negra Recio RN DC PLANNING: RECEIVED A CALL FROM MAGGIE AT [facility] PROVIDED THE AUTH FOR [facility] #[id number] ARRANGED TRANSPORT WITH [facility] BASE WAD OPERATOR ADJUSTER TIME WITH IN ONE HR. HOME ADDRESS [address] [id number]. RECEIVED A CALL FROM [facility] STATED PT AGREE WITH THE CO-PAY 230$ EVERY 5 DAYS AND WILL DELIVER THE MEDICATION TONIGHT CLARIFIED WITH [facility] THAT WILL SEND THE NURSE EVERY DAY TO ADMINISTER THE ABX AND THE NURSE. [facility] [phone] WILL START THE CARE WITH PT/OT/AND NURSING CARE . CALLED [facility] WILL DELIVER BARIATRIC WHEELCHAIR, SHOWER BENCH AND FWW. PT VERBALIZED UNDERSTANDING. PT WILL BE DISCHARGED HOME. CM TO FOLLOW
--- NOTE | 2022-04-01 13:30 | NUR ---
PT GIVEN TWO JELLOS SINCE HE DID NOT WANT TO EAT HIS LUNCH.
--- NOTE | 2022-04-01 14:27 | NUR ---
Patient will be admitted to care of DR GRAHAM. Admited to TELEMETRY. Will go to room 107 A. Belongings list completed. Report to
[2022-04-01 14:30] VITALS: BP 134/76
--- NOTE | 2022-04-01 14:30 | NUR ---
PT ARRIVED IN UNIT VIA GURNEY, PT ON CPAP, RT ADJUSTING CPAP AT BEDSIDE, NO DISTRESS NOTED, ORIENT PT TO BED, CALL LIGHT, STATED UNDERSTANDING, REPORT RRECEIVED FROM RN. PICC LINE TO LEFT UPPER ARM, PATENT INTACT, SL, SINGLE LUMEN. NOTED PT HAS PUSTULES THROUGH OUT THE ABD AREA AND FOOT. WILL NOTIFY INITIAL ASSESSMENT DONE, ALL SAFETY PRECAUTION MET, CALL LIGHT WITHIN REACH, WILL CONTINUE TO MONITOR.
[2022-04-01] MEDS: FUROSEMIDE 40 MG/4 ML VIAL IVP SCH ×2 (15:42→20:33)
[2022-04-01 16:00] VITALS: BP 127/80
[2022-04-01 18:56] LABS: APPEARANCE,URINE CLEAR (CLEAR); BILIRUBIN,URINE NEGATIVE (NEGATIVE); BLOOD, URINE NEGATIVE (NEGATIVE); COLOR,URINE YELLOW (YELLOW); LEUKOCYTE ESTERASE ,URINE NEGATIVE (NEGATIVE); NITRITE, URINE NEGATIVE (NEGATIVE); UGLUCOSE NEGATIVE (NEGATIVE)
[2022-04-01 19:14] LABS: BARBITURATE, URINE NEGATIVE ng/ml (NEG <=200)
[2022-04-01 19:15] LABS: BENZODIAZEPINE, URINE POSITIVE ng/mL (NEG <=200); CANNABINOID, URINE POSITIVE ng/mL (NEG <=50); COCAINE, URINE NEGATIVE ng/mL (NEG <=300); OPIATE, URINE POSITIVE ng/mL (NEG <=2000); PHENCYCLIDINE SCREEN,URINE NEGATIVE ng/mL (NEG <=25)
--- NOTE | 2022-04-01 19:25 | NUR ---
RECEIVED PATIENT FROM AM NURSE FOR CONTINUITY OF CARE. PT IS STABLE
--- NOTE | 2022-04-01 19:30 | NUR ---
ENDORSED PT TO AUTOMATION DRIVER NURSE FOR CONTINUOUS OF CARE.
[2022-04-01 20:00] VITALS: BP 154/94
--- NOTE | 2022-04-01 20:00 | NUR ---
PT PLACED ON TRILOGY AVAPS 500Vt (TARGET) +8 f16 P 8-17 UTILIZING PTS PILLOW MASK AND TUBING PT TOLERATING WELL AT THIS TIME PT WENT TO SLEEP FAIRLY QUICKLY ALARMS ARE ON AND AUDIBLE TRILOGY PLUGGED INTO RED OUTLET WILL CONTINUE TO MONITOR
[2022-04-01] MEDS: NAFCILLIN 2,000 MG in DEXTROSE 5% 100 ML IV SCH (20:33)
[2022-04-01] MEDS: hydrALAZINE 10 MG TAB PO SCH (20:34)
[2022-04-01] MEDS: ISOSORBIDE DINITRATE 10 MG TAB PO SCH (20:35)
[2022-04-01] MEDS: carvediloL 3.125 MG TAB PO SCH (20:35)
[2022-04-01] MEDS: ATORVASTATIN 20 MG TAB PO SCH (20:36)
[2022-04-01] MEDS ORDERED: traZODone 50 MG TAB PO SCH (21:00)
[2022-04-01] MEDS ORDERED: PERMETHRIN 5% 60 GM TUBE TP SCH (21:00)
--- NOTE | 2022-04-01 21:30 | NUR ---
ALL SCHEDULED MEDICATIONS GIVEN.NO ADVERSE REACTIONS NOTED
--- NOTE | 2022-04-01 22:00 | NUR ---
PERMETHRINE CREAM APPLIED FROM HEAD TO TOE FOR SCABIES. WILL ENDORSE TO AM NURSE TO FOLLOW UP WITH SHOWER
[2022-04-02] VITALS: BP 145/93
--- NOTE | 2022-04-02 01:30 | NUR ---
CALLED REGARDING PATIENT'S PICCLINE THAT IS CLOGGED. SAID TO ENDORSE TO AM TO CALL FOR PICC LINE INSERTION.
[2022-04-02 04:00] VITALS: BP 142/91
[2022-04-02] MEDS: NAFCILLIN 2,000 MG in DEXTROSE 5% 100 ML IV SCH ×7 (04:00→19:42)
[2022-04-02] MEDS: FUROSEMIDE 40 MG/4 ML VIAL IVP SCH ×3 (05:33→20:49)
[2022-04-02] MEDS: hydrALAZINE 10 MG TAB PO SCH ×3 (05:33→20:50)
[2022-04-02] MEDS: ISOSORBIDE DINITRATE 10 MG TAB PO SCH ×3 (05:34→21:00)
[2022-04-02] MEDS: MORPHINE SULFATE 2 MG/ML SYR IVP PRN ×5 (05:35→21:51)
[2022-04-02] MEDS: BLOOD GLUCOSE MONITORING 1 DEV DEV FS SCH ×4 (07:00→21:23)
[2022-04-02 07:12] LABS: ANION GAP 18.6 (8-16); CARBON DIOXIDE 25.8 mmol/L (21-32); CREATININE 3.4 mg/dL (0.6-1.3); POTASSIUM 4.4 mmol/L (3.5-5.1)
--- NOTE | 2022-04-02 07:30 | NUR ---
ENDORSED PATIENT TO AM NURSE FOR CONTINUITY OF CARE. PT IS STABLE
--- NOTE | 2022-04-02 07:30 | NUR ---
received report from Omar magana
[2022-04-02 07:34] LABS: WHITE BLOOD COUNT (AUTO) 3.2 K/uL (4.8-10.8)
[2022-04-02 07:36] LABS: HEMATOCRIT 28.5 % (36-52); MEAN CORPUSCULAR HEMOGLOBIN 25 pg (27-31); MEAN CORPUSCULAR HGB CONC 32 g/dL (33-37); MEAN CORPUSCULAR VOLUME 78.6 fL (80-94); PLATELET COUNT (AUTO) 218 K/uL (140-450); RED BLOOD CELL COUNT(AUTO) 3.63 MIL/uL (4.20-6.10); RED CELL DISTRIBUTION WIDTH 26.2 % (11.6-13.7)
[2022-04-02 08:00] VITALS: BP 135/63
--- NOTE | 2022-04-02 09:00 | NUR ---
due meds given.
[2022-04-02] MEDS: carvediloL 3.125 MG TAB PO SCH ×2 (09:48→20:59)
[2022-04-02] MEDS: APIXABAN 2.5 MG TAB PO SCH ×2 (09:48→21:00)
[2022-04-02] MEDS: SUCRALFATE 1 GM TAB PO SCH ×4 (09:48→21:03)
[2022-04-02] MEDS: ECOTRIN 81 MG TABEC PO SCH (09:48)
[2022-04-02] MEDS: PANTOPRAZOLE 40 MG TABEC PO SCH ×2 (09:48→21:04)
[2022-04-02 10:28] LABS: BASOPHILS % (AUTO) 1.2 % (0.0-2.0); EOSINOPHILS # (AUTO) 0.5 K/uL (0-0.4); LYMPHOCYTES # (AUTO) 1.2 K/uL (2.0-11.5); LYMPHOCYTES % (AUTO) 37.6 % (20.5-51.1); MONOCYTES # (AUTO) 0.5 K/uL (0.8-1.0); MONOCYTES % (AUTO) 14.2 % (1.7-9.3); NEUTROPHILS # (AUTO) 1.1 K/uL (1.8-7.7); PLATELET COUNT,MANUAL 207 K/uL (150-450)
[2022-04-02 10:29] LABS: EOSINOPHILS % (MANUAL) 15 % (0-4); LYMPHOCYTES % (MANUAL) 34 % (20-46); MONOCYTES % (MANUAL) 15 % (5-12); OTHER CELLS,MANUAL % 2 (0-0)
[2022-04-02 12:00] VITALS: BP 131/83
--- NOTE | 2022-04-02 12:30 | NUR ---
Bed bath done to remove Elimite cream
[2022-04-02 16:00] VITALS: BP 138/88
--- NOTE | 2022-04-02 19:20 | NUR ---
RECEIVED REPORT FROM AM NURSE MAYITO RN FOR CONTINUITY OF CARE. PT IS STABLE. AWAKE A&OX4 SITTING UP IN BED TALKING WITH , FINISHING DINNER. PT IS ON RM AIR SLIGHT CRACKLES WITH INSPIRATION. DENIES PAIN AT THIS TIME.RR EVEN AND UNLABORED WITH EQUAL CHEST RISE. GI INTACT. PT'S SKIN HAS DRY SCABS ALL OVER TORSO AND ABDOMEN. PT IS ON BEDREST. HE IS CONTINENT AND USES URINAL AND BEDPAN. PT HAS HEALED L BKA. ALL SAFETY MEASURES IN PLACE. CALL LIFHT WITHIN REACH. WILL CONTINUE TO MONITOR.
[2022-04-02 20:00] VITALS: BP 113/70
--- NOTE | 2022-04-02 20:08 | NUR ---
PT RESTING IN SEMI-FOWLERS WATCHING TV W/ NO DISTRESS NOTED WILL RETURN LATER FOR NOC NIV
[2022-04-02] MEDS: ATORVASTATIN 20 MG TAB PO SCH (21:01)
[2022-04-02] MEDS: INSULIN LISPRO SLIDING SCALE 100 UNITS/ML VIAL SUBQ PRN (21:24)
--- NOTE | 2022-04-02 22:00 | NUR ---
HS MEDS GIVEN BP-113/70, HR-80. ALL BP MEDS GIVEN. ABX UNIPEN 2000MG IVPB INFUSED WITHOUT DIFFICULTY INTO SUPRIYA PICC LINE SINGLE LUMEN. WB=736 COVERED WITH 2 UNITS HUMALOG INSULIN PER SLIDING SCALE. NAD. USING HOSPITAL'S BIPAP MACHINE AT NIGHT. MSO4 2MG IVP GIVEN FOR C/O 6/10 GENERALIZED PAIN. EFFECTIVE. PT REPORTED DISCOMFORT EASING AFTER 20 MINUTES. CALL LIGHT WITHIN REACH WILL CONTINUE TO MONITOR.
[2022-04-03] VITALS: BP 131/83
[2022-04-03] MEDS: MORPHINE SULFATE 2 MG/ML SYR IVP PRN ×5 (02:07→21:53)
[2022-04-03 04:00] VITALS: BP 124/71
[2022-04-03] MEDS: NAFCILLIN 2,000 MG in DEXTROSE 5% 100 ML IV SCH ×8 (04:10→23:07)
--- NOTE | 2022-04-03 04:30 | NUR ---
BP-124/71, HR- 83. LASIX IVP AND BP MEDS APRESOLINE AND ISORDIL GIVEN. UNIPEN IVPB CONTINUED FOR OSTEOMYELITIS.
[2022-04-03] MEDS: FUROSEMIDE 40 MG/4 ML VIAL IVP SCH ×3 (05:04→20:50)
[2022-04-03] MEDS: hydrALAZINE 10 MG TAB PO SCH ×3 (05:09→20:51)
[2022-04-03] MEDS: ISOSORBIDE DINITRATE 10 MG TAB PO SCH ×3 (05:09→20:59)
[2022-04-03] MEDS: BLOOD GLUCOSE MONITORING 1 DEV DEV FS SCH ×4 (06:34→20:38)
[2022-04-03] MEDS: INSULIN LISPRO SLIDING SCALE 100 UNITS/ML VIAL SUBQ PRN ×3 (06:35→20:40)
--- NOTE | 2022-04-03 06:45 | NUR ---
XL=729 COVERED WITH 2 UNITS HUMALOG INSULIN PER SLIDING SCALE. AM LABS DRAWN. MSO4 2MG IVP GIVEN FOR 7/10 GENERALIZED PAIN. ENDORSE TO DAY SHIFT NURSE TO FOLLOW UP RE:SCABIES AND ELIMITE CREAM. ENDORSED PATIENT TO AM YUDI ANDRADE FOR CONTINUITY OF CARE. PT IS STABLE. ALL NEEDS MET THROUGHOUT THE SHIFT.
[2022-04-03 07:02] LABS: BASOPHILS # (AUTO) 0.1 K/uL (0.00-0.22); BASOPHILS % (AUTO) 2.4 % (0.0-2.0); EOSINOPHILS # (AUTO) 0.7 K/uL (0-0.4); EOSINOPHILS % (AUTO) 18.9 % (0.0-4.0); HEMATOCRIT 28.5 % (36-52); HEMOGLOBIN 8.9 g/dL (12.0-18.0); LYMPHOCYTES # (AUTO) 0.9 K/uL (2.0-11.5); LYMPHOCYTES % (AUTO) 25.6 % (20.5-51.1); MEAN CORPUSCULAR HEMOGLOBIN 25 pg (27-31); MEAN CORPUSCULAR HGB CONC 31 g/dL (33-37); MEAN CORPUSCULAR VOLUME 79.7 fL (80-94); MONOCYTES # (AUTO) 0.4 K/uL (0.8-1.0); MONOCYTES % (AUTO) 10.4 % (1.7-9.3); NEUTROPHILS # (AUTO) 1.6 K/uL (1.8-7.7); NEUTROPHILS % (AUTO) 42.7 % (42.2-75.2); PLATELET COUNT (AUTO) 211 K/uL (140-450); RED BLOOD CELL COUNT(AUTO) 3.57 MIL/uL (4.20-6.10); RED CELL DISTRIBUTION WIDTH 26.2 % (11.6-13.7); WHITE BLOOD COUNT (AUTO) 3.7 K/uL (4.8-10.8)
[2022-04-03 07:20] LABS: ANION GAP 15.9 (8-16); CREATININE 3.3 mg/dL (0.6-1.3); POTASSIUM 3.9 mmol/L (3.5-5.1)
[2022-04-03 08:00] VITALS: BP 165/108
--- NOTE | 2022-04-03 08:00 | NUR ---
RECEIVED REPORT FROM THE NIGHT NURSE PT AWAKE IN BED. LOOKS COMFORTABLE,[id number]
[2022-04-03] MEDS: SUCRALFATE 1 GM TAB PO SCH ×4 (08:51→20:56)
[2022-04-03] MEDS: FERROUS SULFATE 325 MG TABEC PO SCH (08:51)
[2022-04-03] MEDS: PANTOPRAZOLE 40 MG TABEC PO SCH ×2 (08:51→21:01)
[2022-04-03] MEDS: ECOTRIN 81 MG TABEC PO SCH (08:51)
[2022-04-03] MEDS: APIXABAN 2.5 MG TAB PO SCH ×2 (08:52→20:58)
[2022-04-03] MEDS: carvediloL 3.125 MG TAB PO SCH ×2 (08:54→20:56)
[2022-04-03 12:00] VITALS: BP 168/99
[2022-04-03 16:00] VITALS: BP 201/131
--- NOTE | 2022-04-03 18:03 | NUR ---
THE MEDICAL RELEASE FORM IS SIGNED AND FAXED TO [phone] REQUESTED BY DR PINEDA
[2022-04-03 20:00] VITALS: BP 156/64
[2022-04-03] MEDS: ATORVASTATIN 20 MG TAB PO SCH (21:00)
[2022-04-04] VITALS: BP 154/88
[2022-04-04] MEDS: MORPHINE SULFATE 2 MG/ML SYR IVP PRN ×5 (02:04→22:18)
[2022-04-04 04:00] VITALS: BP 151/101
[2022-04-04] MEDS: NAFCILLIN 2,000 MG in DEXTROSE 5% 100 ML IV SCH ×5 (04:09→21:27)
[2022-04-04] MEDS: FUROSEMIDE 40 MG/4 ML VIAL IVP SCH ×3 (04:15→21:28)
[2022-04-04] MEDS: ISOSORBIDE DINITRATE 10 MG TAB PO SCH ×2 (04:16→13:25)
[2022-04-04] MEDS: hydrALAZINE 10 MG TAB PO SCH ×2 (04:16→13:26)
[2022-04-04] MEDS: BLOOD GLUCOSE MONITORING 1 DEV DEV FS SCH ×4 (06:21→22:01)
--- NOTE | 2022-04-04 07:24 | NUR ---
GOT REPORT FROM THE NIGHT NURSE, PT IS AWAKE, DISCUSSED PLAN OF CARE.[id number]
[2022-04-04 07:29] LABS: BASOPHILS % (AUTO) 0.5 % (0.0-2.0); EOSINOPHILS # (AUTO) 0.3 K/uL (0-0.4); EOSINOPHILS % (AUTO) 7.8 % (0.0-4.0); HEMATOCRIT 28.5 % (36-52); LYMPHOCYTES # (AUTO) 2.7 K/uL (2.0-11.5); LYMPHOCYTES % (AUTO) 71.9 % (20.5-51.1); MEAN CORPUSCULAR HEMOGLOBIN 25 pg (27-31); MEAN CORPUSCULAR HGB CONC 31 g/dL (33-37); MONOCYTES # (AUTO) 0.2 K/uL (0.8-1.0); NEUTROPHILS # (AUTO) 0.5 K/uL (1.8-7.7); NEUTROPHILS % (AUTO) 13.8 % (42.2-75.2); PLATELET COUNT (AUTO) 214 K/uL (140-450); RED BLOOD CELL COUNT(AUTO) 3.61 MIL/uL (4.20-6.10); RED CELL DISTRIBUTION WIDTH 26.2 % (11.6-13.7); WHITE BLOOD COUNT (AUTO) 3.8 K/uL (4.8-10.8)
[2022-04-04 07:47] LABS: ANION GAP 17.8 (8-16); CARBON DIOXIDE 26.6 mmol/L (21-32); CREATININE 3.1 mg/dL (0.6-1.3); POTASSIUM 4.4 mmol/L (3.5-5.1)
[2022-04-04 08:00] VITALS: BP 156/90
[2022-04-04] MEDS: ECOTRIN 81 MG TABEC PO SCH (08:46)
[2022-04-04] MEDS: SUCRALFATE 1 GM TAB PO SCH ×4 (08:46→21:29)
[2022-04-04] MEDS: carvediloL 3.125 MG TAB PO SCH (08:46)
[2022-04-04] MEDS: FERROUS SULFATE 325 MG TABEC PO SCH (08:47)
[2022-04-04] MEDS: PANTOPRAZOLE 40 MG TABEC PO SCH ×2 (08:48→21:31)
[2022-04-04] MEDS: APIXABAN 2.5 MG TAB PO SCH ×2 (08:48→21:30)
--- NOTE | 2022-04-04 11:48 | NUR ---
[facility] CPAP MODE PLUGGED INTO RED OUTLET TOLERATING WELL WITHOUT ADVERSE REACTIONS NOTED WITH PATIENT WEARING OWN NASAL PILLOWS (RESPIRONICS) SECURED WITH HEAT STRAP LOC AWAKE AND ALERT STABLE VERBALLY RESPONSIVE EQUAL CHEST RISE GOOD AERATION THROUGHOUT AIRWAY PATENT
[2022-04-04 12:00] VITALS: BP 147/101
[2022-04-04 16:00] VITALS: BP 146/86
[2022-04-04] MEDS: INSULIN LISPRO SLIDING SCALE 100 UNITS/ML VIAL SUBQ PRN (17:01)
--- NOTE | 2022-04-04 17:30 | NUR ---
TOLERATING RESPIRONICS TRILOGY WITH CPAP MODE WELL WITHOUT ADVERSE REACTIONS NOTED EQUAL CHEST RISE AIRWAY PATENT
--- NOTE | 2022-04-04 19:25 | NUR ---
RECEIVED REPORT FROM AM NURSE FOR CONTINUITY OF CARE.PATIENT IS STABLE, WILL CONTINUE TO MONITOR
[2022-04-04 20:00] VITALS: BP 159/97
[2022-04-04] MEDS: hydrALAZINE 25 MG TAB PO SCH (21:28)
[2022-04-04] MEDS: carvediloL 6.25 MG TAB PO SCH (21:29)
--- NOTE | 2022-04-04 21:30 | NUR ---
ALL SCHEDULED MEDICATIONS ADMINISTERED,NO ADVERSE REACTIONS NOTED
[2022-04-04] MEDS: ATORVASTATIN 20 MG TAB PO SCH (21:31)
[2022-04-04] MEDS: ISOSORBIDE DINITRATE 20 MG TAB PO SCH (21:31)
[2022-04-04] MEDS: ZOLPIDEM 5 MG TAB PO PRN (22:20)
[2022-04-05] VITALS: BP 130/81
[2022-04-05] MEDS: NAFCILLIN 2,000 MG in DEXTROSE 5% 100 ML IV SCH ×6 (00:38→20:11)
--- NOTE | 2022-04-05 01:04 | NUR ---
PATIENT ASLEEP,RESPIRATIONS EVEN AND UNLABORED,NO DISTRESS NOTED
[2022-04-05] MEDS: MORPHINE SULFATE 2 MG/ML SYR IVP PRN ×3 (03:47→21:01)
[2022-04-05 04:00] VITALS: BP 131/70
[2022-04-05] MEDS: FUROSEMIDE 40 MG/4 ML VIAL IVP SCH ×3 (05:30→20:43)
[2022-04-05] MEDS: hydrALAZINE 25 MG TAB PO SCH ×3 (05:30→20:43)
[2022-04-05] MEDS: ISOSORBIDE DINITRATE 20 MG TAB PO SCH ×3 (05:31→20:44)
[2022-04-05] MEDS: BLOOD GLUCOSE MONITORING 1 DEV DEV FS SCH ×4 (06:43→20:59)
[2022-04-05 07:44] LABS: EOSINOPHILS # (AUTO) 0.7 K/uL (0-0.4); EOSINOPHILS % (AUTO) 17.9 % (0.0-4.0); HEMATOCRIT 28.5 % (36-52); HEMOGLOBIN 8.9 g/dL (12.0-18.0); LYMPHOCYTES # (AUTO) 0.7 K/uL (2.0-11.5); LYMPHOCYTES % (AUTO) 19.7 % (20.5-51.1); MEAN CORPUSCULAR HEMOGLOBIN 25 pg (27-31); MEAN CORPUSCULAR HGB CONC 31 g/dL (33-37); MEAN CORPUSCULAR VOLUME 79.4 fL (80-94); MONOCYTES # (AUTO) 0.8 K/uL (0.8-1.0); MONOCYTES % (AUTO) 20.2 % (1.7-9.3); NEUTROPHILS # (AUTO) 1.5 K/uL (1.8-7.7); NEUTROPHILS % (AUTO) 41.2 % (42.2-75.2); PLATELET COUNT (AUTO) 209 K/uL (140-450); RED BLOOD CELL COUNT(AUTO) 3.58 MIL/uL (4.20-6.10); RED CELL DISTRIBUTION WIDTH 26.7 % (11.6-13.7); WHITE BLOOD COUNT (AUTO) 3.7 K/uL (4.8-10.8)
[2022-04-05 08:02] LABS: ANION GAP 15.5 (8-16); CARBON DIOXIDE 29.4 mmol/L (21-32); CREATININE 3.1 mg/dL (0.6-1.3); POTASSIUM 3.9 mmol/L (3.5-5.1)
[2022-04-05] MEDS: SUCRALFATE 1 GM TAB PO SCH ×4 (08:31→20:43)
[2022-04-05] MEDS: ECOTRIN 81 MG TABEC PO SCH (08:31)
[2022-04-05] MEDS: carvediloL 6.25 MG TAB PO SCH ×2 (08:32→20:44)
[2022-04-05] MEDS: APIXABAN 2.5 MG TAB PO SCH ×2 (08:33→21:00)
[2022-04-05] MEDS: PANTOPRAZOLE 40 MG TABEC PO SCH ×2 (08:34→20:45)
[2022-04-05] MEDS ORDERED: [UNRECOGNIZED DRUG - CODE] IV (10:32)
[2022-04-05] MEDS ORDERED: CARV6.25 PO (10:32)
[2022-04-05] MEDS ORDERED: HYDR-3233 PO (10:32)
[2022-04-05] MEDS ORDERED: ISOS10TA9 PO (10:32)
[2022-04-05] MEDS ORDERED: LASIX IV (10:33)
--- NOTE | 2022-04-05 11:30 | NUR ---
RECEIVED ON A RESPIRONICS TRILOGY VENTILATOR ON CPAP MODE PLUGGED INTO RED OUTLET TOLERATING WELL WITHOUT ADVERSE REACTIONS NOTED TO PATIENT OWN NASAL PILLOWS STABLE RESTING COMFORTABLY GOOD CHEST RISE GOOD AERATION THROUGHOUT BILATERAL DUMONT AIRWAY PATENT
--- NOTE | 2022-04-05 15:06 | NUR ---
04/05/22 RD INITIAL ASSESSMENT COMPLETED PLEASE REFER TO NUTRITION ASSESSMENT UNDER CARE ACTIVITY FOR ESTIMATED NUTRITIONAL NEEDS. 1. CONTINUE CARDIAC DIET TOLERATED 2. WILL CONT TO MONITOR PO INTAKE AND GI SYMPTOMS. 3. RD TO FOLLOW-UP 7 DAYS, LOW RISK REVIEWED BY ENRIQUE MATTHEWS RD
[2022-04-05 17:24] VITALS: BP 145/88
--- NOTE | 2022-04-05 17:34 | NUR ---
Patient stating he is refusing to go to SNF and believes he is not well enough and needs to stay at the hospital.
--- NOTE | 2022-04-05 19:30 | NUR ---
RECEIVED PT FROM AM NURSE FOR CONTINUITY OF CARE. PT IS STABLE
[2022-04-05 20:00] VITALS: BP 145/69
[2022-04-05] MEDS: ATORVASTATIN 20 MG TAB PO SCH (20:44)
--- NOTE | 2022-04-05 21:30 | NUR ---
ALL SCHEDULED MEDS GIVEN,NO ADVERSE REACTIONS NOTED
[2022-04-06] MEDS: NAFCILLIN 2,000 MG in DEXTROSE 5% 100 ML IV SCH ×6 (00:22→20:24)
--- NOTE | 2022-04-06 01:00 | NUR ---
PATIENT ASLEEP,BREATHING EVEN AND UNLABORED,NO DISTRESS NOTED
[2022-04-06] MEDS: MORPHINE SULFATE 2 MG/ML SYR IVP PRN ×5 (01:29→21:23)
--- NOTE | 2022-04-06 03:00 | NUR ---
PATIENT ASLEEP, ALL SAFETY MEASURES IN PLACE,CALL LIGHT WITHIN EASY REACH. NO DISTRESS NOTED
[2022-04-06 04:00] VITALS: BP 152/98
[2022-04-06] MEDS: FUROSEMIDE 40 MG/4 ML VIAL IVP SCH ×3 (05:45→20:58)
[2022-04-06] MEDS: ISOSORBIDE DINITRATE 20 MG TAB PO SCH ×3 (05:46→20:59)
[2022-04-06] MEDS: hydrALAZINE 25 MG TAB PO SCH ×3 (05:46→21:00)
--- NOTE | 2022-04-06 06:00 | NUR ---
PATIENT AWAKE, NO COUGH OR SHORTNESS OF BREATH NOTED
[2022-04-06] MEDS: BLOOD GLUCOSE MONITORING 1 DEV DEV FS SCH ×4 (06:37→20:43)
--- NOTE | 2022-04-06 07:10 | NUR ---
RECEIVED REPORT FROM DOCUMENT MANAGEMENT ANALYST NURSE FOR CONTINUITY OF CARE. PT IS SLEEPING. AROUSABLE BY VERBAL STIMULI. RESPIRATIONS EVEN AND UNLABORED ON CPAP. NO DISTRESS NOTED. A&O4, ABLE TO COMMUNICATE NEEDS. PICC LINE AT SUPRIYA. PT IS CONTINENT TO BOWEL AND BLADDER, W/ URINAL AT BEDSIDE. CALL LIGHT WITHIN REACH. SAFETY PRECAUTIONS IN PLACE. WILL CONTINUE TO MONITOR.
[2022-04-06 07:15] LABS: BASOPHILS % (AUTO) 0.7 % (0.0-2.0); EOSINOPHILS # (AUTO) 0.6 K/uL (0-0.4); EOSINOPHILS % (AUTO) 13.8 % (0.0-4.0); HEMATOCRIT 27.4 % (36-52); HEMOGLOBIN 8.9 g/dL (12.0-18.0); LYMPHOCYTES % (AUTO) 24.1 % (20.5-51.1); MEAN CORPUSCULAR HEMOGLOBIN 26 pg (27-31); MEAN CORPUSCULAR HGB CONC 33 g/dL (33-37); MEAN CORPUSCULAR VOLUME 78.6 fL (80-94); MONOCYTES # (AUTO) 0.6 K/uL (0.8-1.0); MONOCYTES % (AUTO) 14.6 % (1.7-9.3); NEUTROPHILS # (AUTO) 1.9 K/uL (1.8-7.7); NEUTROPHILS % (AUTO) 46.8 % (42.2-75.2); PLATELET COUNT (AUTO) 201 K/uL (140-450); RED BLOOD CELL COUNT(AUTO) 3.49 MIL/uL (4.20-6.10); RED CELL DISTRIBUTION WIDTH 25.9 % (11.6-13.7); WHITE BLOOD COUNT (AUTO) 4.1 K/uL (4.8-10.8)
[2022-04-06 07:49] LABS: ANION GAP 16.5 (8-16); CARBON DIOXIDE 27.4 mmol/L (21-32); CREATININE 3.1 mg/dL (0.6-1.3); POTASSIUM 3.9 mmol/L (3.5-5.1)
[2022-04-06 08:00] VITALS: BP 150/78
--- NOTE | 2022-04-06 08:00 | NUR ---
PT AWAKE CARE PLAN DISCUSSED, COVERING RETAIL AREA MANAGER FOR IV MED. [id number]
[2022-04-06] MEDS ORDERED: ALBUTEROL HFA MDI 90 MCG/ACTUATION 8 GM INH PRN (08:37)
[2022-04-06] MEDS: carvediloL 6.25 MG TAB PO SCH ×2 (09:07→20:59)
[2022-04-06] MEDS: SUCRALFATE 1 GM TAB PO SCH ×4 (09:10→20:58)
[2022-04-06] MEDS: PANTOPRAZOLE 40 MG TABEC PO SCH ×2 (09:11→20:59)
[2022-04-06] MEDS: FERROUS SULFATE 325 MG TABEC PO SCH (09:11)
[2022-04-06] MEDS: ECOTRIN 81 MG TABEC PO SCH (09:11)
[2022-04-06] MEDS: APIXABAN 2.5 MG TAB PO SCH ×2 (09:12→21:03)
--- NOTE | 2022-04-06 09:20 | NUR ---
ADMINISTERED SCHEDULED MORNING MEDS. PT TEACHING ABOUT MEDS GIVEN. PT VERBALIZED UNDERSTANDING. CALL LIGHT WITHIN REACH. SAFETY PRECAUTIONS IN PLACE. WILL CONTINUE TO MONITOR.
--- NOTE | 2022-04-06 09:24 | NUR ---
PHYSICAL THERAPY CO-SIGN The Physical Therapy Progress Notes documented by Sales And Marketing Administrator have been reviewed. Reviewed/Co-Signed by: Edelmira Garcia Documentation Done by: DILSHAD HAYES PTA Addendum: 04/06/22 at 9128 by Edelmira Garcia PT Amended: Links added.
--- NOTE | 2022-04-06 09:55 | NUR ---
NAFCILLIN ADMINISTERED BY YUDI MARTINEZ. NO ADVERSE REACTION NOTED.
[2022-04-06] MEDS: INSULIN LISPRO SLIDING SCALE 100 UNITS/ML VIAL SUBQ PRN ×2 (11:51→21:30)
--- NOTE | 2022-04-06 11:55 | NUR ---
BLOOD GLUCOSE CHECK DONE. BS 165. SLIDING SCALE INSULIN ADMINISTERED.
--- NOTE | 2022-04-06 12:40 | NUR ---
NAFCILLIN AND LASIX ADMINISTERED BY YUDI MARTINEZ. NO ADVERSE REACTION NOTED.
[2022-04-06 16:00] VITALS: BP 145/99
--- NOTE | 2022-04-06 16:34 | NUR ---
BLOOD GLUCOSE CHECK DONE. BS 140. NO SLIDING SCALE INSULIN COVERAGE GIVEN. NAFCILLIN ADMINISTERED BY YUDI MARTINEZ. PT COMPLAINED OF BACK PAIN 04/20. PRN PAIN MED TO BE GIVEN BY YUDI.
[2022-04-06] MEDS: metOLazone 5 MG TAB PO SCH (18:28)
--- NOTE | 2022-04-06 19:15 | NUR ---
ENDORSED PT TO TERRITORY SALES PROFESSIONAL NURSE FOR CONTINUITY OF CARE. ALL NEEDS MET THROUGHOUT SHIFT. PT IS STABLE.
--- NOTE | 2022-04-06 19:30 | NUR ---
RECEIVED REPORT FROM DAY SHIFT NURSE FOR CONTINUITY OF CARE. PATIENT WAS SITTING UP IN BED WEARING CPAP MACHINE. HE WAS WATCHING TELEVISION. IV SITE IS SUPRIYA PICC WITH A SINGLE LUMEN. IVF RUNNING TKO. PATIENT IS USING URINAL WHICH IS NEXT TO BED. BREATHING IS NORMAL WITH SYMMETRICAL RISE AND FALL OF CHEST. BED IS IN LOWEST POSITION WITH WHEELS LOCKED AND CALL LIGHT IS WITHIN REACH. WILL CONTINUE TO OBSERVE PATIENT.
[2022-04-06 20:00] VITALS: BP 150/80
[2022-04-06] MEDS: ATORVASTATIN 20 MG TAB PO SCH (21:00)
[2022-04-06] MEDS: ZOLPIDEM 5 MG TAB PO PRN (21:23)
--- NOTE | 2022-04-06 21:30 | NUR ---
OBTAINED 2000 VITALS, CHECKED BLOOD GLUCOSE, AND ADMINISTERED 2100 MEDICATIONS TO PATIENT. VITALS WERE: TEMP 96.2, HR 90, BP 150/80, RR 18, O2 93. BLOOD SUGAR WAS 221, COVERED WITH 4 UNITS. PATIENT REQUESTED PAIN MEDICATION FOR 7/10 PAIN. GAVE MORPHINE AT 2122, PATIENT TOLERATED WELL. PATIENT WAS BREATHING NORMALLY ON CPAP WITH SYMMETRICAL RISE AND FALL OF CHEST; BED WAS IN LOWEST POSITION WITH WHEELS LOCKED AND CALL LIGHT IN PLACE. WILL CONTINUE TO OBSERVE PATIENT.
--- NOTE | 2022-04-06 22:30 | NUR ---
LOOKED IN ON PATIENT TO REASSESS PAIN. PATIENT STATED PAIN HAS DECREASED FROM 7/10 TO A 3/10. PATIENT IS LYING IN BED WITH CPAP ON TRYING TO GO TO SLEEP. WILL CONTINUE TO OBSERVE.
[2022-04-07] MEDS: NAFCILLIN 2,000 MG in DEXTROSE 5% 100 ML IV SCH ×7 (00:07→23:40)
--- NOTE | 2022-04-07 00:15 | NUR ---
HUNG 0000 IVPB. PATIENT WAS SLEEPING. IVF WAS RUNNING TKO. PATIENT WAS ON CPAP, O2 WAS 94%. BED WAS IN LOWEST POSITION, WHEELS LOCKED, CALL LIGHT WAS WITHIN REACH. WILL CONTINUE TO OBSERVE PATIENT.
--- NOTE | 2022-04-07 01:25 | NUR ---
LOOKED IN ON PATIENT @ 0105. PATIENT WAS SLEEPING, PATIENT HAD PULLED OFF FINGER PULSE OXIMETER. APPLIED NEW FINGER PULSE OXIMETER. IVPB HAD NOT FINISHED, PATIENT HAD ARM BENT AND IT WAS INTERFERING WITH IV LINE. STRAIGHTENED PATIENT'S ARM OUT AND MONITORED IV FOR A FEW MINUTES CORRECTING PATIENT'S ARM WHENEVER IT AFFECTED THE LINE. WILL LOOK BACK IN ON PATIENT IN 20 MINUTES TO CHECK IV LINE.
--- NOTE | 2022-04-07 02:00 | NUR ---
LOOKED IN ON PATIENT, IVPB HAD NOT FINISHED. STAYED IN ROOM UNTIL IVPB COMPLETED. PATIENT WOKE UP AND INQUIRED ABOUT PAIN MEDICATION. WILL PROVIDE MEDICATION PER PHYSICIANS ORDERS.
[2022-04-07] MEDS: MORPHINE SULFATE 2 MG/ML SYR IVP PRN ×4 (02:20→20:24)
--- NOTE | 2022-04-07 02:33 | NUR ---
CHECKED CHART. PAIN MEDICATION CAN BE GIVEN BASED ON LAST TIME GIVEN. ASSESSED PATIENT'S BLOOD PRESSURE, BP WAS 130/68. PAIN LEVEL WAS 7/10 BACK PAIN. EMPTIED 12 OZ OF PATIENT'S URINAL, AND WENT TO GET MEDICATION. UPON RETURNING PATIENT HAD 16 MORE OZ OF URINE IN URINAL. EMPTIED URINAL. ADMINISTERED IVP PAIN MEDICATION TO PATIENT. PATIENT TOLERATED WELL. PATIENT'S BREATHING WAS NORMAL WITH SYMMETRICAL RISE AND FALL; BED WAS IN LOWEST POSITION, WHEELS LOCKED, CALL LIGHT WITHIN REACH. WILL CONTINUE TO OBSERVE PATIENT.
--- NOTE | 2022-04-07 04:50 | NUR ---
PATIENT'S 0400 VITALS WERE: TEMP 95.6, HR 76, BP 145/79, RR 18, O2 100. PATIENT WAS SLEEPING SUPINE UPON ENTERING ROOM. BREATHING WAS NORMAL WITH SYMMETRICAL RISE AND FALL OF CHEST. WILL CONTINUE TO OBSERVE.
[2022-04-07] MEDS: hydrALAZINE 25 MG TAB PO SCH ×3 (05:19→20:20)
[2022-04-07] MEDS: ISOSORBIDE DINITRATE 20 MG TAB PO SCH ×3 (05:19→20:22)
[2022-04-07] MEDS: FUROSEMIDE 40 MG/4 ML VIAL IVP SCH ×2 (05:19→14:06)
--- NOTE | 2022-04-07 05:32 | NUR ---
EMPTIED 400 ML OF URINE FROM PATIENT.
--- NOTE | 2022-04-07 05:32 | NUR ---
ADMINISTER 0500 MEDICATIONS. PATIENT TOLERATED MEDS WELL. PATIENT WAS LYING SUPINE UPON ENTERING ROOM. BREATHING WAS NORMAL WITH SYMMETRICAL RISE AND FALL OF CHEST. WILL CONTINUE TO OBSERVE PATIENT.
[2022-04-07] MEDS: BLOOD GLUCOSE MONITORING 1 DEV DEV FS SCH ×4 (06:38→20:42)
--- NOTE | 2022-04-07 06:43 | NUR ---
BLOOD SUGAR WAS 120. NO COVERAGE WAS NEEDED. PATIENT REQUESTED STOOL SOFTENER. WILL LOOK AT CHART AND ADMINISTER APPROPRIATELY.
--- NOTE | 2022-04-07 06:57 | NUR ---
ADMINISTERED COLACE TO PATIENT. PATIENT TOLERATED WELL. WILL CONTINUE TO OBSERVE.
--- NOTE | 2022-04-07 07:10 | NUR ---
RECEIVED REPORT FROM CARBON PLANT GRINDER NURSE FOR CONTINUITY OF CARE. PT IS AWAKE. RESPIRATIONS EVEN AND UNLABORED ON CPAP. NO DISTRESS NOTED. A&O4, ABLE TO COMMUNICATE NEEDS. SUPRIYA PICC 1X LUMEN. CALL LIGHT WITHIN REACH. SAFETY PRECAUTIONS IN PLACE. WILL CONTINUE TO MONITOR.
[2022-04-07 07:15] LABS: HEMATOCRIT 27.2 % (36-52); HEMOGLOBIN 8.8 g/dL (12.0-18.0); MEAN CORPUSCULAR HEMOGLOBIN 25 pg (27-31); MEAN CORPUSCULAR HGB CONC 32 g/dL (33-37); MEAN CORPUSCULAR VOLUME 78.6 fL (80-94); PLATELET COUNT (AUTO) 199 K/uL (140-450); RED BLOOD CELL COUNT(AUTO) 3.46 MIL/uL (4.20-6.10); RED CELL DISTRIBUTION WIDTH 26.7 % (11.6-13.7); WHITE BLOOD COUNT (AUTO) 3.8 K/uL (4.8-10.8)
--- NOTE | 2022-04-07 07:30 | NUR ---
ENDORSED TO DAY SHIFT NURSE PREETI FOR CONTINUITY OF CARE. PATIENT IS STABLE.
[2022-04-07 08:00] VITALS: BP 140/72
[2022-04-07 08:50] LABS: EOSINOPHILS % (MANUAL) 19 % (0-4); LYMPHOCYTES % (MANUAL) 19 % (20-46); MONOCYTES % (MANUAL) 6 % (5-12)
[2022-04-07] MEDS: carvediloL 6.25 MG TAB PO SCH ×2 (09:00→20:20)
[2022-04-07] MEDS: ECOTRIN 81 MG TABEC PO SCH (09:00)
[2022-04-07] MEDS: metOLazone 5 MG TAB PO SCH (09:01)
[2022-04-07] MEDS: PANTOPRAZOLE 40 MG TABEC PO SCH ×2 (09:01→20:23)
[2022-04-07] MEDS: SUCRALFATE 1 GM TAB PO SCH ×4 (09:01→20:20)
[2022-04-07] MEDS: APIXABAN 2.5 MG TAB PO SCH ×2 (09:06→20:22)
--- NOTE | 2022-04-07 09:14 | NUR ---
ADMINISTERED SCHEDULED MORNING MEDS. PT TEACHING ABOUT MEDS GIVEN. PT VERBALIZED UNDERSTANDING. NAFCILLIN ADMINISTERED BY YUDI FISCHER. PT COMPLAINED OF PAIN 8/10 ON HIS BACK. PRN PAIN MED TO BE GIVEN BY RN. CALL LIGHT WITHIN REACH. SAFETY PRECAUTIONS IN PLACE. WILL CONTINUE TO MONITOR.
--- NOTE | 2022-04-07 10:29 | NUR ---
PHYSICAL THERAPY CO-SIGN The Physical Therapy Progress Notes documented by Spray Applicator have been reviewed. Reviewed/Co-Signed by: Edelmira Garcia Documentation Done by: DILSHAD HAYES PTA Addendum: 04/07/22 at 1029 by Edelmira Garcia PT Amended: Links added.
[2022-04-07] MEDS: INSULIN LISPRO SLIDING SCALE 100 UNITS/ML VIAL SUBQ PRN ×3 (11:21→20:45)
--- NOTE | 2022-04-07 11:23 | NUR ---
BLOOD GLUCOSE CHECK DONE. BS 206. SLIDING SCALE INSULIN ADMINISTERED.
[2022-04-07 11:29] VITALS: BP 140/72
--- NOTE | 2022-04-07 12:24 | NUR ---
SCHEDULED IV NAFCILLIN GIVEN BY YUDI FISCHER. NO ADVERSE REACTION NOTED. WILL CONTINUE TO MONITOR.
[2022-04-07] MEDS ORDERED: ZAR2.5 PO (13:25)
--- NOTE | 2022-04-07 13:36 | NUR ---
ADMINISTERED SCHEDULED MEDS. PT TEACHING ABOUT MEDS GIVEN. PT VERBALIZED UNDERSTANDING. PT COMPLAINT OF BACK PAIN 04/20. PRN PAIN MED TO BE GIVEN BY RN.
[2022-04-07 14:22] LABS: ANION GAP 15.2 (8-16); CARBON DIOXIDE 27.8 mmol/L (21-32); CREATININE 3.2 mg/dL (0.6-1.3)
[2022-04-07 16:00] VITALS: BP 140/83
--- NOTE | 2022-04-07 16:10 | NUR ---
SCHEDULED NAFCILLIN ADMINISTERED BY YUDI.
--- NOTE | 2022-04-07 17:20 | NUR ---
BLOOD GLUCOSE CHECK DONE. BS 167. SLIDING SCALE INSULIN ADMINISTERED.
--- NOTE | 2022-04-07 19:04 | NUR ---
ENDORSED PT TO ELECTROPHYSIOLOGY NURSE PRACTITIONER NURSE FOR CONTINUITY OF CARE. ALL NEEDS MET THROUGHOUT SHIFT. PT IS STABLE.
--- NOTE | 2022-04-07 19:05 | NUR ---
RECEIVED REPORT FROM AM NURSE HEATON FOR CONTINUITY OF CARE. PT IS STABLE IN BED. A&OX4. DENIES PAIN.ON RM AIR/O2 WITH NO ACUTE DISTRESS. RR EVEN AND UNLABORED WITH EQUAL CHEST RISE.. GI IS INTACT. PT'S SKIN IS INTACT. SCABIES SCABS ARE OLD AND DRIED. PT IS BED BOUND BUT CONTINENT OF BOWEL AND BLADDER. ALL SAFETY MEASURES IN PLACE . PT ABLE TO MAKE NEEDS KNOWN. CALL LIGHT WITHIN REACH WILL CONTINUE WITH FREQ ROUNDS.
[2022-04-07 20:00] VITALS: BP 132/81
[2022-04-07] MEDS: ATORVASTATIN 20 MG TAB PO SCH (20:23)
--- NOTE | 2022-04-07 21:30 | NUR ---
HS MEDS GIVEN. JT=961 COVERED WITH 2 UNITS HUMALOG INSULIN PER SLIDING SCALE. MSO4 2MG IVP GIVEN FOR GENERALIZED LOWER BACK AND LEG PAIN. EFFECTIVE PT REPORTED DISCOMFORT EASING AFTER 20 MINUTES. CALL LIGHT WITHIN REACH. WILL CONTINUE WITH FREQ ROUNDS.
[2022-04-08] MEDS: MORPHINE SULFATE 2 MG/ML SYR IVP PRN ×4 (00:37→22:01)
--- NOTE | 2022-04-08 00:37 | NUR ---
RECEIVED MSO4 2MG IVP FOR CHRONIC LOWER BACK AND LEG PAIN. EFFECTIVE PT REPORTED DISCOMFORT EASING AFTER 20 MINUTES. CALL LIGHT WITHIN REACH. WILL CONTINUE TO MONITOR.
[2022-04-08] MEDS: NAFCILLIN 2,000 MG in DEXTROSE 5% 100 ML IV SCH ×6 (04:14→23:13)
[2022-04-08] MEDS: hydrALAZINE 25 MG TAB PO SCH ×3 (04:37→20:32)
[2022-04-08] MEDS: ISOSORBIDE DINITRATE 20 MG TAB PO SCH ×3 (04:37→20:35)
--- NOTE | 2022-04-08 05:30 | NUR ---
VSS: BP-115/73, P-88, RR-20, T-96.6, O2 SAT=98% ON RM AIR. LATEST MSO4 2MG IVP GIVEN AT 0447. BP MEDS GIVEN. AT 0630 BS= 138 NO COVERAGE NEEDED.
--- NOTE | 2022-04-08 07:03 | NUR ---
ENDORSED REPORT TO AM NURSE FOR CONTINUITY OF CARE. PT IS STABLE. ALL NEEDS MET THROUGHOUT THE SHIFT.
--- NOTE | 2022-04-08 07:05 | NUR ---
RECEIVED ENDORSEMENT FROM VENDING MECHANIC NURSE FOR CONTINUITY OF CARE. PATIENT AWAKE ON C- PAP. RESPIRATION EVEN AND NOT LABORED NO SHORTNESS OF BREATH. IV SITE ON LEFT UPPER ARM SINGLE LUMEN. ALL SAFETY MEASURE IN PLACE.
[2022-04-08] MEDS: BLOOD GLUCOSE MONITORING 1 DEV DEV FS SCH ×4 (07:08→20:31)
[2022-04-08 07:33] LABS: BASOPHILS # (AUTO) 0.1 K/uL (0.00-0.22); BASOPHILS % (AUTO) 1.5 % (0.0-2.0); EOSINOPHILS # (AUTO) 0.9 K/uL (0-0.4); EOSINOPHILS % (AUTO) 25.6 % (0.0-4.0); HEMATOCRIT 27.1 % (36-52); HEMOGLOBIN 8.6 g/dL (12.0-18.0); LYMPHOCYTES # (AUTO) 0.3 K/uL (2.0-11.5); LYMPHOCYTES % (AUTO) 7.5 % (20.5-51.1); MEAN CORPUSCULAR HEMOGLOBIN 25 pg (27-31); MEAN CORPUSCULAR HGB CONC 32 g/dL (33-37); MEAN CORPUSCULAR VOLUME 78.7 fL (80-94); MONOCYTES # (AUTO) 0.6 K/uL (0.8-1.0); NEUTROPHILS # (AUTO) 1.5 K/uL (1.8-7.7); NEUTROPHILS % (AUTO) 46.4 % (42.2-75.2); PLATELET COUNT (AUTO) 200 K/uL (140-450); RED BLOOD CELL COUNT(AUTO) 3.44 MIL/uL (4.20-6.10); RED CELL DISTRIBUTION WIDTH 26.4 % (11.6-13.7); WHITE BLOOD COUNT (AUTO) 3.3 K/uL (4.8-10.8)
[2022-04-08 08:00] VITALS: BP 133/86
[2022-04-08 09:35] LABS: ANION GAP 14.7 (8-16); CARBON DIOXIDE 28.8 mmol/L (21-32); CREATININE 3.3 mg/dL (0.6-1.3); POTASSIUM 3.5 mmol/L (3.5-5.1)
[2022-04-08] MEDS: ECOTRIN 81 MG TABEC PO SCH (10:06)
[2022-04-08] MEDS: FERROUS SULFATE 325 MG TABEC PO SCH (10:06)
[2022-04-08] MEDS: ATORVASTATIN 20 MG TAB PO SCH ×2 (10:13→20:37)
[2022-04-08] MEDS: carvediloL 6.25 MG TAB PO SCH ×2 (10:14→20:32)
[2022-04-08] MEDS: BUMETANIDE 1 MG TAB PO SCH ×2 (10:14→16:58)
--- NOTE | 2022-04-08 10:14 | NUR ---
PATIENT ALERT NO DISTRESS NOTED ON C PAP. GIVEN ALL DUE MEDICATION COMPLAIN OF PAIN INFORM RN.
[2022-04-08] MEDS: APIXABAN 2.5 MG TAB PO SCH ×2 (10:16→20:34)
[2022-04-08] MEDS: PANTOPRAZOLE 40 MG TABEC PO SCH ×2 (10:17→20:35)
[2022-04-08] MEDS: SUCRALFATE 1 GM TAB PO SCH ×4 (10:17→20:32)
--- NOTE | 2022-04-08 11:51 | NUR ---
BLOOD SUGAR CHECK GIVEN INSULIN COVERAGE TOLERATED WELL.
[2022-04-08] MEDS: INSULIN LISPRO SLIDING SCALE 100 UNITS/ML VIAL SUBQ PRN ×3 (11:53→20:44)
[2022-04-08] MEDS ORDERED: PERMETHRIN 5% 60 GM TUBE TP SCH (12:36)
[2022-04-08] MEDS: TRIAMCINOLONE 0.1% CRM 15 GM TUBE TP SCH ×2 (13:27→17:12)
--- NOTE | 2022-04-08 13:27 | NUR ---
MEDICATION AND TREATMENT GIVEN. APPLIED ELIMITE CREAM ORDERED.
[2022-04-08 16:00] VITALS: BP 146/81
--- NOTE | 2022-04-08 17:05 | NUR ---
BLOOD SUGAR CHECKED GIVEN INSULIN COVERAGE AND BUMEX AND SUCRALFATE. RN GAVE MORPHINE FOR COMPLAIN OF PAIN AND HANG IV MEDICATION.
--- NOTE | 2022-04-08 18:35 | NUR ---
PATIENT ALERT ON STABLE CONDITION EATING DINNER AT THIS TIME. CALL LIGHT WITH IN EASY REACH.
--- NOTE | 2022-04-08 19:31 | NUR ---
GAVE REPORT TO WAD PRINTING MACHINE OPERATOR NURSE FOR CONTINUITY OF CARE.
--- NOTE | 2022-04-08 19:32 | NUR ---
RECEIVED REPORT FROM AM NURSE FOR CONTINUITY OF CARE. PT IS STABLE IN BED. A&OX4. DENIES PAIN AT THIS TIME.ON RM AIR/O2 WITH NO ACUTE DISTRESS. RR EVEN AND UNLABORED WITH EQUAL CHEST RISE.GI INTACT. PT'S SKINIS INTACT. ALL SAFETY MEASURES IN PLACE. PT IS BED BOUND AND CONTINENT. BED IN LOW AND LOCKED POSITION. CALL LIGHT WITHIN REACH.
[2022-04-09] VITALS: BP 115/67
[2022-04-09] MEDS: ZOLPIDEM 5 MG TAB PO PRN (00:28)
[2022-04-09] MEDS: MORPHINE SULFATE 2 MG/ML SYR IVP PRN ×5 (02:41→22:07)
[2022-04-09] MEDS: NAFCILLIN 2,000 MG in DEXTROSE 5% 100 ML IV SCH ×5 (04:16→21:28)
[2022-04-09] MEDS: hydrALAZINE 25 MG TAB PO SCH ×3 (04:29→21:56)
[2022-04-09] MEDS: ISOSORBIDE DINITRATE 20 MG TAB PO SCH ×3 (04:29→21:58)
[2022-04-09] MEDS: BLOOD GLUCOSE MONITORING 1 DEV DEV FS SCH ×4 (06:02→21:52)
[2022-04-09] MEDS: INSULIN LISPRO SLIDING SCALE 100 UNITS/ML VIAL SUBQ PRN ×4 (06:04→22:31)
--- NOTE | 2022-04-09 07:30 | NUR ---
2201: MSO4 2MG/1CC GIVEN FOR CHRONIC BACK AND LEG PAIN. PT IS IN COMPLIANCE WITH 1000ML FLUID RESTRICTION PER DAY. 0000: PT TOLERATING NAFCILLIN IVPB WITHOUT COMPLICATIONS. 0400: NAFCILLIN IVPB INFUSED VIA SUPRIYA SINGLE LUMEN PICC LINE Q 4HRS. 0500: BP-147/74 RECEIVED BP MEDS APRESOLINE AND ISORDIL. 0600:BS-161 COVERED WITH 2 UNITS HUMALOG INSULIN PER SLIDING SCALE. 0645: RECEIVED MSO4 2MG IVP FOR CHRONIC LOWER BACK AND R LEG PAIN.
[2022-04-09 07:31] LABS: BASOPHILS # (AUTO) 0.1 K/uL (0.00-0.22); BASOPHILS % (AUTO) 2.1 % (0.0-2.0); EOSINOPHILS # (AUTO) 0.8 K/uL (0-0.4); HEMATOCRIT 28.2 % (36-52); LYMPHOCYTES # (AUTO) 0.4 K/uL (2.0-11.5); LYMPHOCYTES % (AUTO) 11.3 % (20.5-51.1); MEAN CORPUSCULAR HEMOGLOBIN 25 pg (27-31); MEAN CORPUSCULAR HGB CONC 32 g/dL (33-37); MEAN CORPUSCULAR VOLUME 78.7 fL (80-94); MONOCYTES # (AUTO) 0.7 K/uL (0.8-1.0); MONOCYTES % (AUTO) 17.8 % (1.7-9.3); NEUTROPHILS # (AUTO) 1.8 K/uL (1.8-7.7); NEUTROPHILS % (AUTO) 46.8 % (42.2-75.2); PLATELET COUNT (AUTO) 194 K/uL (140-450); RED BLOOD CELL COUNT(AUTO) 3.58 MIL/uL (4.20-6.10); RED CELL DISTRIBUTION WIDTH 26.3 % (11.6-13.7); WHITE BLOOD COUNT (AUTO) 3.9 K/uL (4.8-10.8)
--- NOTE | 2022-04-09 07:35 | NUR ---
ENDORSED PT REPORT TO AM NURSE FOR CONTINUITY OF CARE. PT IS STABLE. ALL NEEDS MET THROUGHOUT THE SHIFT.
--- NOTE | 2022-04-09 07:38 | NUR ---
RECEIVED PT FROM NIGHT RN, PT IS ON CPAP, LYING ON THE BED WITH SIDE RAILS UP AND CALL LIGHT WITHIN REACH, NO IVF INFUSING, WITH A SUPRIYA PICC SMILEY SINGLE LUMEN IN PLACE ON LOCK, LEFT BKA NOTED, NO SIGN OF DISTRESS NOTED AND WILL CONTINUE TO MONITOR PT.
[2022-04-09 08:00] VITALS: BP 135/77
[2022-04-09 08:17] LABS: ANION GAP 16.8 (8-16); CARBON DIOXIDE 29.1 mmol/L (21-32); CREATININE 3.3 mg/dL (0.6-1.3); POTASSIUM 3.9 mmol/L (3.5-5.1)
--- NOTE | 2022-04-09 08:37 | NUR ---
PT WAS GIVEN THE SCHEDULED AM MEDICATIONS, PARAMETERS CHECKED, TOLERATED, NO DISTRESS NOTED, AND WILL CONTINUE TO MONITOR PT.
[2022-04-09] MEDS: ECOTRIN 81 MG TABEC PO SCH (08:38)
[2022-04-09] MEDS: APIXABAN 2.5 MG TAB PO SCH ×2 (08:40→22:00)
[2022-04-09] MEDS: SUCRALFATE 1 GM TAB PO SCH ×4 (08:41→21:57)
[2022-04-09] MEDS: PANTOPRAZOLE 40 MG TABEC PO SCH ×2 (08:41→21:59)
[2022-04-09] MEDS: BUMETANIDE 1 MG TAB PO SCH ×2 (08:42→17:07)
[2022-04-09] MEDS: carvediloL 6.25 MG TAB PO SCH ×2 (08:43→21:57)
[2022-04-09] MEDS: TRIAMCINOLONE 0.1% CRM 15 GM TUBE TP SCH ×3 (09:05→17:08)
--- NOTE | 2022-04-09 09:35 | NUR ---
DR. OROSCO MADE A VERBAL ORDER TO GIVE PT METOLAZONE 5MG PO EVERY OTHER DAY AND ONE DOSE NOW.
[2022-04-09] MEDS ORDERED: metOLazone 5 MG TAB PO SCH (09:46)
[2022-04-09 10:47] LABS: MAGNESIUM 2.6 mg/dL (1.8-2.4); PHOSPHORUS 4.1 mg/dL (2.5-4.9)
[2022-04-09] MEDS: metOLazone 5 MG TAB PO SCH (10:52)
--- NOTE | 2022-04-09 12:51 | NUR ---
pt was given the scheduled bp medications now, bp is 127/75, pulse is 84.
--- NOTE | 2022-04-09 13:57 | NUR ---
PT HAD A BM AND WAS CLEANED AND REPOSITIONED NOW.
[2022-04-09 16:00] VITALS: BP 128/75
--- NOTE | 2022-04-09 19:20 | NUR ---
EDNORSED PT TO NIGHT RN FOR CONTINUITY OF CARE, PT IS STABLE AT THIS TIME AND ON BEDSIDE.
--- NOTE | 2022-04-09 19:35 | NUR ---
RECEIVED REPORT FROM DAY SHIFT NURSE. PATIENT WAS LYING HIGH FOWLERS IN BED WITH CPAP ON, FAMILY WAS PRESENT IN CHAIR BESIDE BED. PATIENT'S IV IS A LEFT UPPER ARM SINGLE LUMEN. PATIENT WAS RUNNING NS AT 5ML. PATIENT'S BREATHING WAS NORMAL WITH SYMMETRICAL RISE AND FALL OF CHEST. BED WAS IN LOWEST POSITION, WHEELS LOCKED, CALL LIGHT IN PLACE. ASKED PATIENT HOW HE WAS; PATIENT STATED HE WAS DOING OKAY. REMINDED PATIENT TO USE CALL LIGHT IF THEY NEED ANYTHING. WILL CONTINUE TO OBSERVE PATIENT.
[2022-04-09 20:00] VITALS: BP 137/87
[2022-04-09] MEDS: ATORVASTATIN 20 MG TAB PO SCH (21:58)
--- NOTE | 2022-04-09 22:15 | NUR ---
ADMINISTERED 2100 MEDS TO PATIENT AND CHANGED PATIENT. PATIENT HAD ONE BM. STOOL WAS LARGE AND WELL FORMED. EMPTIED PATIENT'S URINAL, 500 ML. PATIENT'S BS WAS 187. PATIENT INDICATED BACK PAIN 03/20; GAVE PATIENT MORPHINE, PATIENT TOLERATED ALL MEDS WELL. WILL PROVIDE PATIENT WITH INSULIN COVERAGE OF HUMALOG 2 UNITS. BREATHING WAS NORMAL WITH SYMMETRICAL RISE AND FALL OF CHEST. BED WAS IN LOWEST POSITION, WHEELS LOCKED, CALL LIGHT WITHIN REACH. WILL CONTINUE TO OBSERVE PATIENT.
--- NOTE | 2022-04-09 22:45 | NUR ---
GAVE PATIENT 2 UNITS OF HUMALOG FOR COVERAGE. PATIENT TOLERATED WELL. PATIENT WAS IN HIGH FOWLERS POSITION. BED WAS IN LOWEST POSITION WITH WHEELS LOCKED AND CALL LIGHT WITHIN REACH. WILL CONTINUE TO OBSERVE PATIENT.
[2022-04-10] MEDS: NAFCILLIN 2,000 MG in DEXTROSE 5% 100 ML IV SCH ×6 (00:22→20:34)
--- NOTE | 2022-04-10 00:30 | NUR ---
HUNG 0000 IVPB. PATIENT WAS SLEEPING. PATIENT WOKE UP AND I EXPLAINED THAT IT WAS TIME FOR MEDICINE. PATIENT LEANED HEAD OVER TO HIS RIGHT SIDE, STILL IN HIGH FOWLERS POSITION TO GO BACK TO SLEEP. PATIENT WAS STILL ON CPAP. WILL CONTINUE TO OBSERVE PATIENT.
[2022-04-10] MEDS: MORPHINE SULFATE 2 MG/ML SYR IVP PRN ×4 (02:10→23:53)
--- NOTE | 2022-04-10 02:30 | NUR ---
PATIENT WOKE UP AND REQUESTED PAIN MEDICATION AT 0200, STATING BACK PAIN 7/10. CHECKED CHART AND PATIENT'S NEXT DOSE WAS AVAILABLE AT 0207. TOLD PATIENT THAT HIS NEXT DOSE WILL BE AVAILABLE IN A FEW MINUTES, CHECKED BP (WHICH WAS WITHIN NORMAL RANGE) AND BEGAN TO PREPARE THE MEDICATION. PATIENT TOLERATED WELL AND SAID HE WOULD GO BACK TO SLEEP. CPAP WAS ON PATIENT. BREATHING WAS NORMAL WITH SYMMETRICAL RISE AND FALL OF CHEST. WILL CONTINUE TO OBSERVE PATIENT.
[2022-04-10 04:00] VITALS: BP 147/80
[2022-04-10] MEDS: hydrALAZINE 25 MG TAB PO SCH ×3 (04:43→20:42)
[2022-04-10] MEDS: ISOSORBIDE DINITRATE 20 MG TAB PO SCH ×3 (04:44→20:44)
--- NOTE | 2022-04-10 04:49 | NUR ---
OBTAINED O400 VITALS: BP 147/80, TEMP 96.6, HR 84, RESP 18, O2 98%. HUNG 0400 IVPB AND GAVE 0500 MEDS. PATIENT TOLERATED WELL. EMPTIED URINAL 650 ML. PATIENT WAS SLEEPING UPON ENTERING ROOM. PATIENT'S BREATHING WAS NORMAL WITH SYMMETRICAL RISE AND FALL OF CHEST. PATIENT WAS WEARING CPAP. BED WAS IN LOWEST POSITION, WHEELS LOCKED, CALL LIGHT WITHIN REACH. WILL CONTINUE TO OBSERVE PATIENT.
[2022-04-10] MEDS: BLOOD GLUCOSE MONITORING 1 DEV DEV FS SCH ×4 (07:17→20:06)
--- NOTE | 2022-04-10 07:17 | NUR ---
BS 157. 2 UNITS NEEDED.
[2022-04-10] MEDS: INSULIN LISPRO SLIDING SCALE 100 UNITS/ML VIAL SUBQ PRN ×2 (07:20→20:10)
--- NOTE | 2022-04-10 07:21 | NUR ---
2 UNITS GIVEN PATIENT TOLERATED WELL.
[2022-04-10 07:24] LABS: BASOPHILS % (AUTO) 0.4 % (0.0-2.0); EOSINOPHILS # (AUTO) 0.8 K/uL (0-0.4); HEMATOCRIT 27.8 % (36-52); LYMPHOCYTES # (AUTO) 0.6 K/uL (2.0-11.5); MEAN CORPUSCULAR HEMOGLOBIN 25 pg (27-31); MEAN CORPUSCULAR HGB CONC 32 g/dL (33-37); MEAN CORPUSCULAR VOLUME 78.1 fL (80-94); MONOCYTES # (AUTO) 0.6 K/uL (0.8-1.0); NEUTROPHILS # (AUTO) 1.5 K/uL (1.8-7.7); NEUTROPHILS % (AUTO) 42.8 % (42.2-75.2); PLATELET COUNT (AUTO) 201 K/uL (140-450); RED BLOOD CELL COUNT(AUTO) 3.56 MIL/uL (4.20-6.10); RED CELL DISTRIBUTION WIDTH 26.3 % (11.6-13.7); WHITE BLOOD COUNT (AUTO) 3.4 K/uL (4.8-10.8)
--- NOTE | 2022-04-10 07:40 | NUR ---
ENDORSED CARE OF PATIENT TO DAY SHIFT NURSE. PATIENT IS STABLE.
[2022-04-10 07:51] LABS: ALBUMIN 2.3 g/dL (3.4-5.0); ANION GAP 16.4 (8-16); CARBON DIOXIDE 30.1 mmol/L (21-32); CREATININE 3.4 mg/dL (0.6-1.3); POTASSIUM 3.5 mmol/L (3.5-5.1); TOTAL BILIRUBIN 3.7 mg/dL (0.0-1.0)
[2022-04-10] MEDS: carvediloL 6.25 MG TAB PO SCH ×2 (09:00→20:43)
[2022-04-10] MEDS: BUMETANIDE 1 MG TAB PO SCH ×2 (09:00→17:00)
[2022-04-10] MEDS: TRIAMCINOLONE 0.1% CRM 15 GM TUBE TP SCH ×3 (09:00→17:00)
[2022-04-10] MEDS: PANTOPRAZOLE 40 MG TABEC PO SCH ×2 (09:00→20:45)
[2022-04-10] MEDS: SUCRALFATE 1 GM TAB PO SCH ×4 (09:00→20:43)
[2022-04-10] MEDS: ECOTRIN 81 MG TABEC PO SCH (09:00)
[2022-04-10] MEDS: APIXABAN 2.5 MG TAB PO SCH ×2 (09:00→20:46)
[2022-04-10 09:09] LABS: EOSINOPHILS % (AUTO) 21.9 % (0.0-4.0); LYMPHOCYTES % (AUTO) 17.6 % (20.5-51.1); MONOCYTES % (AUTO) 17.3 % (1.7-9.3)
[2022-04-10 16:00] VITALS: BP 140/79
--- NOTE | 2022-04-10 19:30 | NUR ---
RECEIVED REPORT FROM DAY SHIFT NURSE FOR CONTINUITY OF CARE. PATIENT IS SITTING UP IN BED WITH CPAP ON. PATIENT IS WATCHING TV. PATIENT HAS SUPRIYA SINGLE LUMEN, RUNNING TKO. PATIENT IS BREATHING NORMAL WITH SYMMETRICAL RISE AND FALL OF CHEST. BED IS IN LOWEST POSITION, WHEELS LOCKED CALL LIGHT IN REACH. WILL CONTINUE TO OBSERVE.
[2022-04-10 20:00] VITALS: BP 135/66
--- NOTE | 2022-04-10 20:30 | NUR ---
BS WAS 242, GAVE PATIENT 4 UNITS OF HUMALOG. WILL CONTINUE TO OBSERVE PATIENT.
[2022-04-10] MEDS: ATORVASTATIN 20 MG TAB PO SCH (20:45)
--- NOTE | 2022-04-10 21:00 | NUR ---
HUNG 1999 IVPB, GAVE 47414 MEDS. PATIENT TOLERATED WELL. IVF RUNNING TKO. WILL CONTINUE TO OBSERVE.
[2022-04-11] MEDS: NAFCILLIN 2,000 MG in DEXTROSE 5% 100 ML IV SCH ×2
--- NOTE | 2022-04-11 | NUR ---
GAVE MORPHINE AT 2353. FOR 710 BACK PAIN. PATIENT TOLERATED WELL. WILL CONTINUE TO OBSERVE PATIENT.
--- NOTE | 2022-04-11 00:15 | NUR ---
GAVE 0000 IVPB. D/C AT 0001. THIS WILL BE LAST DOSE. PATIENT WAS SLEEPING. WILL CONTINUE TO OBSERVE.
--- NOTE | 2022-04-11 01:49 | NUR ---
PT IS AWAKE OFF CPAP WATCHING TV AT THIS TIME
--- NOTE | 2022-04-11 03:00 | NUR ---
LOOKED IN ON PATIENT. PATIENT WAS SLEEPING. WILL CONTINUE TO OBSERVE.
[2022-04-11 04:00] VITALS: BP 125/80
[2022-04-11] MEDS: hydrALAZINE 25 MG TAB PO SCH ×3 (05:52→20:22)
[2022-04-11] MEDS: ISOSORBIDE DINITRATE 20 MG TAB PO SCH ×3 (05:53→20:24)
--- NOTE | 2022-04-11 06:00 | NUR ---
GAVE 0500 MEDS. PATIENT TOLERATED WELL. WILL CONTINUE TO OBSERVE.
[2022-04-11] MEDS: MORPHINE SULFATE 2 MG/ML SYR IVP PRN ×4 (06:27→21:00)
[2022-04-11] MEDS: BLOOD GLUCOSE MONITORING 1 DEV DEV FS SCH ×4 (06:36→20:03)
[2022-04-11 06:40] LABS: HEMATOCRIT 28.7 % (36-52); HEMOGLOBIN 9.1 g/dL (12.0-18.0); MEAN CORPUSCULAR HEMOGLOBIN 25 pg (27-31); MEAN CORPUSCULAR HGB CONC 32 g/dL (33-37); MEAN CORPUSCULAR VOLUME 78.9 fL (80-94); PLATELET COUNT (AUTO) 195 K/uL (140-450); RED BLOOD CELL COUNT(AUTO) 3.64 MIL/uL (4.20-6.10); RED CELL DISTRIBUTION WIDTH 25.4 % (11.6-13.7); WHITE BLOOD COUNT (AUTO) 3.5 K/uL (4.8-10.8)
[2022-04-11] MEDS: INSULIN LISPRO SLIDING SCALE 100 UNITS/ML VIAL SUBQ PRN ×4 (06:40→20:11)
--- NOTE | 2022-04-11 06:45 | NUR ---
BS 164, GAVE 2 UNITS OF HUMALOG. WILL CONTINUE TO OBSERVE PATIENT
--- NOTE | 2022-04-11 07:30 | NUR ---
ENDORSED CONTINUITY OF CARE TO DAY SHIFT NURSE. PATIENT IS STABLE.
[2022-04-11 07:32] LABS: ANION GAP 16.9 (8-16); CARBON DIOXIDE 29.9 mmol/L (21-32); CREATININE 3.5 mg/dL (0.6-1.3); POTASSIUM 3.8 mmol/L (3.5-5.1)
--- NOTE | 2022-04-11 07:44 | NUR ---
RECEIVED ON A RESPIRONICS TRILOGY VENTILATOR ON CPAP MODE PLUGGED INTO RED OUTLET TOLERATING WELL WITHOUT ADVERSE REACTIONS NOTED TO PATIENT OWN NASAL PILLOWS SECURED WITH HEAD STRAP ASLEEP RESTING COMFORTABLY EQUAL CHEST RISE AIRWAY PATENT
--- NOTE | 2022-04-11 07:50 | NUR ---
CHANGED TO A [employer] V60 BIPAP ON CPAP MODE PLUGGED INTO RED OUTLET TOLERATING WELL WITHOUT ADVERSE REACTIONS NOTED TO PATIENT OWN NASAL PILLOW SECURED WITH HEAD STRAP ASLEEP RESTING WELL GOOD CHEST RISE AIRWAY PATENT Addendum: 04/11/22 at 1744 by Rhett Duran RT (LATE ENTRY) UNDER MENU MASK/PORT CHANGED TO OTHER
[2022-04-11 08:00] VITALS: BP 126/68
[2022-04-11 08:14] LABS: BASOPHILS % (MANUAL) 0 % (0-2); EOSINOPHILS % (MANUAL) 37 % (0-4); LYMPHOCYTES % (MANUAL) 10 % (20-46); MONOCYTES % (MANUAL) 13 % (5-12)
[2022-04-11 08:15] LABS: METAMYELOCYTES % 1 % (0-0)
[2022-04-11 08:16] LABS: BUFFY COAT SMEAR PREP N
--- NOTE | 2022-04-11 08:34 | NUR ---
RECEIVE ENDORSEMENT FROM PM SHIFT NURSE THAT PATIENT RES TON BED W/ C-PAP ON, AM LAB BUN=63, CREATININE=3.5. PCP INFORMED, WILL CONTINUE TO MONITOR
[2022-04-11] MEDS: FERROUS SULFATE 325 MG TABEC PO SCH (09:00)
[2022-04-11] MEDS: APIXABAN 2.5 MG TAB PO SCH ×2 (09:00→20:27)
[2022-04-11] MEDS: PANTOPRAZOLE 40 MG TABEC PO SCH ×2 (09:00→20:25)
[2022-04-11] MEDS: ECOTRIN 81 MG TABEC PO SCH (09:00)
[2022-04-11] MEDS: metOLazone 5 MG TAB PO SCH (09:00)
[2022-04-11] MEDS: BUMETANIDE 1 MG TAB PO SCH ×2 (09:00→16:31)
[2022-04-11] MEDS: SUCRALFATE 1 GM TAB PO SCH ×4 (09:00→20:23)
[2022-04-11] MEDS: carvediloL 6.25 MG TAB PO SCH ×2 (09:00→20:23)
[2022-04-11] MEDS: TRIAMCINOLONE 0.1% CRM 15 GM TUBE TP SCH ×3 (09:00→16:35)
[2022-04-11] MEDS ORDERED: metOLazone 2.5 MG TAB PO SCH (09:15)
--- NOTE | 2022-04-11 12:03 | NUR ---
RESTING WELL ASLEEP ON RIGHT SIDE NO EVIDENCE FOR PULMONARY DISTRESS NOTED GOOD CHEST AIRWAY PATENT TOLERATING [employer] V60 BIPAP WELL WITHOUT COMPLICATIONS NOTED
--- NOTE | 2022-04-11 15:15 | NUR ---
PHYSICAL THERAPY CO-SIGN The Physical Therapy Progress Notes documented by Volleyball Player have been reviewed. Reviewed/Co-Signed by: Edelmira Garcia Documentation Done by: DILSHAD HAYES PTA Addendum: 04/11/22 at 1515 by Edelmira Garcia PT Amended: Links added.
[2022-04-11 16:00] VITALS: BP 132/72
--- NOTE | 2022-04-11 17:18 | NUR ---
TOLERATING [employer] V60 BIPAP (CPAP MODE) WELL WITHOUT ADVERSE REACTIONS NOTED TO PATIENT OWN NASAL PILLOW BIPAP REMAINS PLUGGED INTO RED OUTLET BIPAP FOUND TO HAVE FOOD PARTICLES TO LEFT PORTION OF SCREEN AND BIPAP WIPED ENTIRE BIPAP WITH SANI WIPE PHOTONICS ENGINEERING TECHNOLOGIST LOCKED BIPAP SCREEN AT THIS TIME
--- NOTE | 2022-04-11 19:30 | NUR ---
RECEIVED REPORT FROM DAY SHIFT NURSE MCKENZIE FOR CONTINUITY OF CARE. PATIENT WAS SITTING UP IN BED. WAS SITTING BY BEDSIDE. PATIENT WAS ON CPAP MACHINE. IV IS SUPRIYA SINGLE LUMEN RUNNING FLUIDS TKO. BED IS IN LOWEST POSITION, WHEELS ARE LOCKED, CALL LIGHT IS IN REACH. WILL CONTINUE TO OBSERVE PATIENT.
--- NOTE | 2022-04-11 19:49 | NUR ---
ENDORSE PATIENT TO PM SHIFT NURSE THAT PATIENT REST ON BED W/ BI-PAP FOR BREATHING, IV PICC AT L. UPPER ARM. PT WAS ABLE TO BRING PATIENT TO SITTING ON THE CHAIR. CYTOPATHOLOGY TECHNOLOGIST IS WORKING ON PATIENT'S [facility] STAY FOLLOW UP ISSUE.
[2022-04-11 20:00] VITALS: BP 124/73
[2022-04-11] MEDS: ATORVASTATIN 20 MG TAB PO SCH (20:24)
--- NOTE | 2022-04-11 20:30 | NUR ---
NOTIFIED BY ROXI VALDEZ AT 1954 THAT PATIENT WANTED TO KNOW WHAT HIS BLOOD SUGAR WAS. WENT INTO ROOM AND CHECKED. BS WAS 174, 2 UNITS WAS GIVEN. GAVE PATIENT 2100 MEDICATIONS BP WAS 141/91. PATIENT TOLERATED MEDICATION WELL. WILL CONTINUE TO OBSERVE PATIENT.
--- NOTE | 2022-04-11 21:07 | NUR ---
PATIENT REQUEST PAIN MEDICATION FOR 7/10 BACK PAIN. CHECKED CHART AND BP; MEDICATION WAS APPROPRIATE TO GIVE. GAVE PATIENT MORPHINE IVP. PATIENT TOLERATED WELL WILL CONTINUE TO OBSERVE.
--- NOTE | 2022-04-11 23:00 | NUR ---
LOOKED IN ON PATIENT. PATIENT WAS SLEEPING. BREATHING WAS NORMAL WITH SYMMETRICAL RISE AND FALL OF CHEST. WILL CONTINUE TO OBSERVE PATIENT.
--- NOTE | 2022-04-12 01:30 | NUR ---
LOOKED IN ON PATIENT. PATIENT WAS SLEEPING. BREATHING WAS NORMAL WITH SYMMETRICAL RISE AND FALL OF CHEST. BED WAS IN LOWEST POSITION, CALL LIGHT IN REACH. WILL CONTINUE TO OBSERVE PATIENT.
[2022-04-12 04:00] VITALS: BP 143/71
[2022-04-12] MEDS: hydrALAZINE 25 MG TAB PO SCH ×3 (04:55→20:38)
[2022-04-12] MEDS: ISOSORBIDE DINITRATE 20 MG TAB PO SCH ×3 (04:56→20:41)
[2022-04-12] MEDS: MORPHINE SULFATE 2 MG/ML SYR IVP PRN ×4 (04:57→22:00)
--- NOTE | 2022-04-12 05:00 | NUR ---
PATIENT WOKE UP AND REQUESTED PAIN MEDICATION FOR 8/10 BACK PAIN. ASSESSED BP AND CHART, AND DETERMINED MEDICATION WAS APPROPRIATE TO GIVE. ADMINISTER MORPHINE IVP. ALSO ADMINISTERED 0500 MEDICATION. PATIENT TOLERATED WELL. BREATHING WAS NORMAL WITH RISE AND FALL OF CHEST. WILL CONTINUE TO OBSERVE.
[2022-04-12 07:09] LABS: BASOPHILS # (AUTO) 0.1 K/uL (0.00-0.22); BASOPHILS % (AUTO) 1.6 % (0.0-2.0); EOSINOPHILS # (AUTO) 0.6 K/uL (0-0.4); EOSINOPHILS % (AUTO) 15.4 % (0.0-4.0); HEMATOCRIT 27.2 % (36-52); HEMOGLOBIN 8.8 g/dL (12.0-18.0); LYMPHOCYTES # (AUTO) 0.6 K/uL (2.0-11.5); LYMPHOCYTES % (AUTO) 14.8 % (20.5-51.1); MEAN CORPUSCULAR HEMOGLOBIN 25 pg (27-31); MEAN CORPUSCULAR HGB CONC 32 g/dL (33-37); MEAN CORPUSCULAR VOLUME 78.8 fL (80-94); MONOCYTES # (AUTO) 0.5 K/uL (0.8-1.0); MONOCYTES % (AUTO) 14.5 % (1.7-9.3); NEUTROPHILS % (AUTO) 53.7 % (42.2-75.2); PLATELET COUNT (AUTO) 202 K/uL (140-450); RED BLOOD CELL COUNT(AUTO) 3.45 MIL/uL (4.20-6.10); RED CELL DISTRIBUTION WIDTH 25.8 % (11.6-13.7); WHITE BLOOD COUNT (AUTO) 3.7 K/uL (4.8-10.8)
--- NOTE | 2022-04-12 07:18 | NUR ---
RECEIVED ON A [employer] V60 BIPAP ON CPAP MODE PLUGGED INTO RED OUTLET TOLERATING WELL WITHOUT ADVERSE REACTIONS NOTED TO PATIENT OWN NASAL PILLOW RESTING WELL ON LEFT SIDE GOOD CHEST RISE AIRWAY PATENT
[2022-04-12] MEDS: BLOOD GLUCOSE MONITORING 1 DEV DEV FS SCH ×4 (07:21→20:47)
[2022-04-12 07:29] LABS: CARBON DIOXIDE 30.7 mmol/L (21-32); POTASSIUM 3.7 mmol/L (3.5-5.1)
[2022-04-12 07:42] LABS: CREATININE 3.5 mg/dL (0.6-1.3)
--- NOTE | 2022-04-12 07:50 | NUR ---
ENDORSED CONTINUITY OF CARE TO DAY SHIFT. PATIENT IS STABLE.
[2022-04-12 08:00] VITALS: BP 113/65
[2022-04-12] MEDS: ECOTRIN 81 MG TABEC PO SCH (09:12)
[2022-04-12] MEDS: SUCRALFATE 1 GM TAB PO SCH ×4 (09:13→20:39)
[2022-04-12] MEDS: carvediloL 6.25 MG TAB PO SCH ×2 (09:16→20:40)
[2022-04-12] MEDS: PANTOPRAZOLE 40 MG TABEC PO SCH ×2 (09:17→20:42)
[2022-04-12] MEDS: APIXABAN 2.5 MG TAB PO SCH ×2 (09:18→20:43)
[2022-04-12] MEDS: BUMETANIDE 1 MG TAB PO SCH ×2 (09:19→17:12)
[2022-04-12] MEDS ORDERED: metOLazone 5 MG TAB PO SCH (09:30)
[2022-04-12] MEDS: TRIAMCINOLONE 0.1% CRM 15 GM TUBE TP SCH ×3 (09:32→17:00)
--- NOTE | 2022-04-12 11:30 | NUR ---
TOLERATING CPAP WELL WITHOUT COMPLICATIONS NOTED EQUAL CHEST RISE NO SOB NOTED AIRWAY PATENT
[2022-04-12] MEDS: INSULIN LISPRO SLIDING SCALE 100 UNITS/ML VIAL SUBQ PRN ×3 (12:25→20:46)
--- NOTE | 2022-04-12 14:35 | NUR ---
PHYSICAL THERAPY CO-SIGN The Physical Therapy Progress Notes documented by Managed Care Liaison have been reviewed. Reviewed/Co-Signed by: Edelmira Garcia Documentation Done by:DILSHAD HAYES PTA Addendum: 04/12/22 at 1436 by Edelmira Garcia PT Amended: Links added.
--- NOTE | 2022-04-12 15:07 | NUR ---
04/12/22 RD FOLLOW UP COMPLETED PLEASE REFER TO NUTRITION ASSESSMENT UNDER CARE ACTIVITY FOR ESTIMATED NUTRITIONAL NEEDS. 1. RECOMMEND RENAL DIET 2. RD WILL CONTINUE TO MONITOR PO INTAKE. 3. RD TO FOLLOW-UP 7 DAYS, LOW RISK REVIEWED BY ENRIQUE MATTHEWS RD
[2022-04-12 16:00] VITALS: BP 117/81
--- NOTE | 2022-04-12 17:02 | NUR ---
STABLE NO EVIDENCE OF RESPIRATORY DISTRESS NOTED GOOD CHEST AIRWAY PATENT
--- NOTE | 2022-04-12 18:33 | NUR ---
PT COMPLAIN OF NOT BEING CLEANED, VERIFIED WITH CUSTOMER SALES SPECIALIST THAT PT IS CHANGED 2 TIMES AND HAD EXTRA LARGE BM WELL. UNDERSTAND THE PATIENT HAS THE SAME COMPLAINT WITH THE NIGHT NURSE WELL. [id number]
--- NOTE | 2022-04-12 19:25 | NUR ---
WILLARD CECILIA PT FROM AM NURSE FOR CONTINUITY OF CARE.PT IS STABLE
[2022-04-12] MEDS: ATORVASTATIN 20 MG TAB PO SCH (20:41)
--- NOTE | 2022-04-12 21:30 | NUR ---
ALL SCHEDULED MEDICATIONS GIVEN,NO ADVERSE REACTIONS NOTED
--- NOTE | 2022-04-13 02:00 | NUR ---
PATIENT ASLEEP, NO S/SX OF DISTRESS NOTED
[2022-04-13 04:00] VITALS: BP 131/70
[2022-04-13] MEDS: hydrALAZINE 25 MG TAB PO SCH ×3 (05:04→20:48)
[2022-04-13] MEDS: ISOSORBIDE DINITRATE 20 MG TAB PO SCH ×3 (05:05→20:48)
[2022-04-13] MEDS: MORPHINE SULFATE 2 MG/ML SYR IVP PRN ×4 (06:00→21:02)
--- NOTE | 2022-04-13 06:01 | NUR ---
PATIENT IS AWAKE,COMPLAIN OF BACK PAIN. MORPHINE SULFATE 2 MG IVP GIVEN,NO DISTRESS NOTED
[2022-04-13] MEDS: INSULIN LISPRO SLIDING SCALE 100 UNITS/ML VIAL SUBQ PRN ×4 (06:30→20:47)
[2022-04-13] MEDS: BLOOD GLUCOSE MONITORING 1 DEV DEV FS SCH ×4 (06:33→20:49)
[2022-04-13 06:57] LABS: BASOPHILS % (AUTO) 0.4 % (0.0-2.0); EOSINOPHILS # (AUTO) 0.3 K/uL (0-0.4); HEMOGLOBIN 8.7 g/dL (12.0-18.0); LYMPHOCYTES # (AUTO) 2.2 K/uL (2.0-11.5); LYMPHOCYTES % (AUTO) 54.6 % (20.5-51.1); MEAN CORPUSCULAR HEMOGLOBIN 26 pg (27-31); MEAN CORPUSCULAR HGB CONC 32 g/dL (33-37); MEAN CORPUSCULAR VOLUME 78.9 fL (80-94); MONOCYTES # (AUTO) 0.4 K/uL (0.8-1.0); MONOCYTES % (AUTO) 9.2 % (1.7-9.3); NEUTROPHILS # (AUTO) 1.1 K/uL (1.8-7.7); NEUTROPHILS % (AUTO) 27.8 % (42.2-75.2); PLATELET COUNT (AUTO) 199 K/uL (140-450); RED BLOOD CELL COUNT(AUTO) 3.42 MIL/uL (4.20-6.10); RED CELL DISTRIBUTION WIDTH 25.6 % (11.6-13.7); WHITE BLOOD COUNT (AUTO) 4.1 K/uL (4.8-10.8)
[2022-04-13 07:10] LABS: ANION GAP 14.8 (8-16); CARBON DIOXIDE 31.8 mmol/L (21-32); CREATININE 3.8 mg/dL (0.6-1.3); POTASSIUM 3.6 mmol/L (3.5-5.1)
[2022-04-13 08:00] VITALS: BP 117/58
--- NOTE | 2022-04-13 08:00 | NUR ---
RECEIVED PT FROM NIGHTSALFT NURSE. PT A/O X4. ABLE TO MAKE NEEDS KNOWN. ON BIPAP. O2 SATURATION @ 98%. SUPRIYA PICC SINGLE LUMEN DRESSING C/D/I. ON CONTACT PRECAUTIONS FOR SCABIES. L BKA WITH PROSTHESIS ON. ALL ITEMS INCLUDING BSC WITHIN REACH. NEEDS ALL MET AT THIS TIME. SAFETY MEASURES IN PLACE.
--- NOTE | 2022-04-13 08:35 | NUR ---
PATIENT REMOVED CPAP TO NASAL PILLOW AT THIS TIME AWAKE AND ALERT CONSUMING BREAKFAST NO SOB NOTED GOOD CHEST RISE SATURATION 88%-90% AMBULATING HAND WITH P/OX PROBE MARKETER TO MONITOR
[2022-04-13] MEDS: APIXABAN 2.5 MG TAB PO SCH ×2 (09:09→20:46)
[2022-04-13] MEDS: ECOTRIN 81 MG TABEC PO SCH (09:22)
[2022-04-13] MEDS: carvediloL 6.25 MG TAB PO SCH ×2 (09:22→20:48)
[2022-04-13] MEDS: SUCRALFATE 1 GM TAB PO SCH ×4 (09:22→20:48)
[2022-04-13] MEDS: metOLazone 5 MG TAB PO SCH (09:22)
[2022-04-13] MEDS: BUMETANIDE 1 MG TAB PO SCH ×2 (09:22→16:33)
[2022-04-13] MEDS: PANTOPRAZOLE 40 MG TABEC PO SCH ×2 (09:23→20:48)
[2022-04-13] MEDS: FERROUS SULFATE 325 MG TABEC PO SCH (09:23)
[2022-04-13] MEDS: TRIAMCINOLONE 0.1% CRM 15 GM TUBE TP SCH ×3 (09:29→16:33)
--- NOTE | 2022-04-13 09:30 | NUR ---
PRN MORPHINE GIVEN. CONTACTED PHARMACY FOR TRIAMCINOLONE CREAM. PT ASKING FOR TIME PHYSICAL THERAPY COMING IN. CONTACTED PHYSICAL THERAPY FOR ESTIMATED TIME ARRIVAL. EXPLAINED TO PT THE ESTIMATED TIME ARRIVAL.
--- NOTE | 2022-04-13 09:57 | NUR ---
RECEIVED ON A castaclip V60 BIPAP ON CPAP MODE PLUGGED INTO RED OUTLET TOLERATING WELL WITHOUT COMPLICATIONS NOTED TO PATIENT OWN NASAL PILLOW AWAKE AND ALERT VERBALLY RESPONSIVE HFW POSITION GOOD CHEST RISE NO INDICATION OF PULMONARY DISTRESS NOTED AIRWAY PATENT
[2022-04-13] MEDS ORDERED: metOLazone 5 MG TAB PO SCH (11:08)
--- NOTE | 2022-04-13 13:30 | NUR ---
PRN MORPHINE GIVEN. SEE PAIN ASSESSMENT/REASSESSMENT.
--- NOTE | 2022-04-13 14:10 | NUR ---
PT ABLE TO MOVE TO BED TO BSC. PT BACK IN BED. TOLERATED WELL. PT NOTED WITH LARGE BM. ANALYST PROGRAMMER CONTACTED. PHYSICAL THERAPY COMPLETED AT BEDSIDE AND STATES PT WAS ABLE TO TAKE A FEW STEPS. NEEDS ALL MET AT THIS TIME. SAFETY MEASURES IN PLACE.
--- NOTE | 2022-04-13 14:15 | NUR ---
STABLE TOLERATING CPAP WELL WITHOUT ADVERSE REACTIONS NOTED NO DISTRESS NOTED GOOD CHEST RISE AIRWAY PATENT
--- NOTE | 2022-04-13 15:48 | NUR ---
PHYSICAL THERAPY CO-SIGN The Physical Therapy Progress Notes documented by Transformer Assembly Supervisor have been reviewed. Reviewed/Co-Signed by: Edelmira Garcia Documentation Done by: DILSHAD HAYES PTA Addendum: 04/13/22 at 1548 by Edelmira Garcia PT Amended: Links added.
[2022-04-13 16:00] VITALS: BP 141/76
--- NOTE | 2022-04-13 19:30 | NUR ---
RECEIVED BEDSIDE REPORT FROM DAY SHIFT RN FOR CONTINUITY OF CARE. PT IS AWAKE ON CPAP. PT IS AAOX4. PT HAS SUPRIYA PICC LINE SALINE LOCK. PT HAS LEFT BKA. PT USES URINAL BY BEDSIDE. PLAN OF CARE DISCUSSED. CALL LIGHT WITHIN REACH. WILL CONTINUE TO MONITOR THE PT.
--- NOTE | 2022-04-13 19:32 | NUR ---
REPORT GIVEN TO NIGHTSHIFT NURSE FOR CONTINUITY OF CARE. PT STABLE.
[2022-04-13 20:00] VITALS: BP 127/72
[2022-04-13] MEDS: ATORVASTATIN 20 MG TAB PO SCH (20:48)
--- NOTE | 2022-04-13 21:00 | NUR ---
ALL DUE MEDS GIVEN. NO ADVERSE REACTION NOTED. PT COMPLAINING OF SEVERE BACK PAIN. WILL GIVE MORPHINE PER MD ORDER. NO OTHER COMPLAINS. WILL CONTINUE TO MONITOR THE PT.
[2022-04-14] MEDS: MORPHINE SULFATE 2 MG/ML SYR IVP PRN ×3 (02:28→15:26)
--- NOTE | 2022-04-14 02:33 | NUR ---
PT COMPLAINS OF SEVER BACK PAIN. MORPHINE GIVE PER MD ORDER. NO ADVERSE REACTION NOTED. NO OTHER COMPLAINS. WILL CONTINUE TO MONITOR THE PT.
[2022-04-14 04:00] VITALS: BP 138/62
[2022-04-14] MEDS: ISOSORBIDE DINITRATE 20 MG TAB PO SCH ×3 (04:21→21:16)
[2022-04-14] MEDS: hydrALAZINE 25 MG TAB PO SCH ×3 (04:21→21:11)
--- NOTE | 2022-04-14 04:24 | NUR ---
SCHEDULE MEDS GIVEN. NO ADVERSE REACTION NOTED. WILL CONTINUE TO MONITOR THE PT.
[2022-04-14] MEDS: INSULIN LISPRO SLIDING SCALE 100 UNITS/ML VIAL SUBQ PRN ×4 (06:49→21:27)
[2022-04-14] MEDS: BLOOD GLUCOSE MONITORING 1 DEV DEV FS SCH ×4 (06:51→21:26)
--- NOTE | 2022-04-14 07:22 | NUR ---
ENDORSED PT TO DAY SHIFT RN FOR CONTINUITY OF CARE. PT IS STABLE.
--- NOTE | 2022-04-14 07:25 | NUR ---
RECEIVED REPORT FROM GRATED CHEESE MAKER NURSE FOR CONTINUITY OF CARE. PT IN BED SLEEPING AT THIS TIME. RESPIRATIONS ARE EVEN AND UNLABORED ON ROOM AIR. NO SIGNS OF DISTRESS NOTED. PT IS ALERT AND ORIENTED X4, ABLE TO VERBALIZE NEEDS, ABLE TO FOLLOW COMMANDS. PT ABD IS NONTENDER, NONDISTENDED, WITH BOWEL SOUNDS NOTED. PT IS INCONTINENT OF BOWEL, UTILIZES URINAL AT BEDSIDE. PT HAS MAICOL PICC LINE IN PLACE. PT IS ON CONTACT ISOLATION FOR SCABIES. CALL LIGHT WITHIN REACH. ALL SAFETY MEASURES IN PLACE. WILL CONTINUE TO MONITOR.
[2022-04-14 08:00] VITALS: BP 121/69
--- NOTE | 2022-04-14 08:00 | NUR ---
\ 08 REVIEWED AND CONTINUE THE PLAN OF CARE, COVERING AUREA NAIK FOR IV MED. [id number]
--- NOTE | 2022-04-14 08:00 | NUR ---
Patient's Plan of Care was discussed and reviewed with BOTTLE LABEL INSPECTOR: HEENA. WILL CONTINUE WITH CURRENT POC.
--- NOTE | 2022-04-14 08:23 | NUR ---
RECEIVED ON A [employer] V60 BIPAP ON CPAP MODE PLUGGED INTO RED OUTLET TOLERATING WELL WITHOUT COMPLICATIONS NOTED TO PATIENT OWN NASAL PILLOW SECURED WITH HEAD STRAP LOC AWAKE AND ALERT VERBALLY RESPONSIVE GOOD CHEST RISE AIRWAY PATENT
[2022-04-14] MEDS ORDERED: MINERAL OIL 30 ML UDC MC SCH (09:30)
[2022-04-14] MEDS: APIXABAN 2.5 MG TAB PO SCH ×2 (09:30→21:25)
[2022-04-14] MEDS: BUMETANIDE 1 MG TAB PO SCH ×2 (09:31→17:09)
[2022-04-14] MEDS: carvediloL 6.25 MG TAB PO SCH ×2 (09:31→21:15)
[2022-04-14] MEDS: ECOTRIN 81 MG TABEC PO SCH (09:32)
[2022-04-14] MEDS: PANTOPRAZOLE 40 MG TABEC PO SCH ×2 (09:32→21:24)
[2022-04-14] MEDS: TRIAMCINOLONE 0.1% CRM 15 GM TUBE TP SCH ×3 (09:33→17:09)
[2022-04-14] MEDS: SUCRALFATE 1 GM TAB PO SCH ×4 (09:33→21:12)
--- NOTE | 2022-04-14 09:41 | NUR ---
ADMINISTERED SCHEDULED MEDICATIONS. EDUCATED PT ON MEDS ADMINISTERED. PT VERBALIZED UNDERSTANDING OF ALL INFORMATION PROVIDED. WILL CONTINUE TO MONITOR.
--- NOTE | 2022-04-14 10:23 | NUR ---
ORDER FOR MINERAL OIL, MEDICATION NOT AVAILABLE. MED NOT ADMINISTERED.
--- NOTE | 2022-04-14 12:13 | NUR ---
PHYSICAL THERAPY CO-SIGN The Physical Therapy Progress Notes documented by Metal Fabricating Supervisor have been reviewed. Reviewed/Co-Signed by: Edelmira Garcia Documentation Done by: DILSHAD HAYES PTA Addendum: 04/14/22 at 1213 by Edelmira Garcia PT Amended: Links added.
--- NOTE | 2022-04-14 12:18 | NUR ---
PT BLOOD GLUCOSE WAS 238. ADMINISTERED 4 UNITS INSULIN PER SLIDING SCALE. PT TOLERATED WELL.
[2022-04-14 13:56] LABS: CARBON DIOXIDE 30.2 mmol/L (21-32); POTASSIUM 3.2 mmol/L (3.5-5.1)
--- NOTE | 2022-04-14 14:01 | NUR ---
LAB CALLED WITH CRITICAL VALUE. BUN 78, AND CREATININE 4. DR RON MADE AWARE.
--- NOTE | 2022-04-14 14:16 | NUR ---
AWAKE AND ALERT ON CPAP TO NASAL PILLOW GOOD CHEST RISE AIRWAY PATENT SPOUSE IN ROOM "WATCHING TV AND CONVERSING WITH SPOUSE"
[2022-04-14 16:00] VITALS: BP 127/63
--- NOTE | 2022-04-14 17:14 | NUR ---
PT BLOOD GLUCOSE WAS 210. ADMINISTERED 4 UNITS INSULIN PER SLIDING SCALE. WILL CONTINUE TO MONITOR.
--- NOTE | 2022-04-14 19:04 | NUR ---
ENDORSED PT TO SUPERVISOR CLAM BED NURSE FOR CONTINUITY OF CARE. PT IS STABLE.
--- NOTE | 2022-04-14 19:25 | NUR ---
RECEIVED PT FROM AM NURSE FOR CONTINUITY OF CARE.PT IS STABLE
[2022-04-14 20:00] VITALS: BP 132/70
[2022-04-14] MEDS: ATORVASTATIN 20 MG TAB PO SCH (21:23)
--- NOTE | 2022-04-14 21:30 | NUR ---
ALL SCHEDULED MEDICATIONS GIVEN,NO ADVERSE REACTIONS NOTED
[2022-04-15] MEDS: ZOLPIDEM 5 MG TAB PO PRN (01:19)
--- NOTE | 2022-04-15 02:00 | NUR ---
PATIENT ASLEEP,BREATHING EVEN AND UNLABORED.NO DISTRESS NOTED
[2022-04-15] MEDS: hydrALAZINE 25 MG TAB PO SCH ×2 (04:38→11:55)
[2022-04-15] MEDS: ISOSORBIDE DINITRATE 20 MG TAB PO SCH ×2 (04:39→11:56)
[2022-04-15] MEDS: INSULIN LISPRO SLIDING SCALE 100 UNITS/ML VIAL SUBQ PRN ×2 (06:45→13:58)
[2022-04-15] MEDS: BLOOD GLUCOSE MONITORING 1 DEV DEV FS SCH ×2 (06:47→12:05)
[2022-04-15] MEDS: carvediloL 6.25 MG TAB PO SCH (08:01)
[2022-04-15] MEDS: BUMETANIDE 1 MG TAB PO SCH (08:02)
[2022-04-15] MEDS: ECOTRIN 81 MG TABEC PO SCH (08:02)
[2022-04-15] MEDS: SUCRALFATE 1 GM TAB PO SCH ×2 (08:03→11:55)
[2022-04-15] MEDS: FERROUS SULFATE 325 MG TABEC PO SCH (08:03)
[2022-04-15] MEDS: TRIAMCINOLONE 0.1% CRM 15 GM TUBE TP SCH ×2 (08:04→11:56)
[2022-04-15] MEDS: PANTOPRAZOLE 40 MG TABEC PO SCH (08:04)
[2022-04-15] MEDS: APIXABAN 2.5 MG TAB PO SCH (08:06)
[2022-04-15] MEDS: NAFCILLIN 1,000 MG in DEXTROSE 5% 50 ML IV SCH ×2 (09:29→11:55)
[2022-04-15] MEDS: MORPHINE SULFATE 2 MG/ML SYR IVP PRN ×2 (10:34→14:50)
--- NOTE | 2022-04-15 10:56 | NUR ---
Physical therapist working with patient. Morphine sulfate IVP given prior to PT.
[2022-04-15] MEDS ORDERED: PERM5CRE3 TP (12:25)
[2022-04-15 15:27] VITALS: BP 134/80
--- NOTE | 2022-04-15 16:50 | NUR ---
PHYSICAL THERAPY CO-SIGN The Physical Therapy Progress Notes documented by Instructional Technology Teacher have been reviewed. Reviewed/Co-Signed by: Edelmira Garcia Documentation Done by:DILSHAD HAYES PTA Addendum: 04/15/22 at 1650 by Edelmira Garcia PT Amended: Links added.
[2022-04-19] MEDS ORDERED: CARV6.25 PO (16:22)
[2022-04-19] MEDS ORDERED: HYDR-1102 PO (16:23)
[2022-04-19] MEDS ORDERED: ZAR2.5 PO (16:25)
[2022-04-19] MEDS ORDERED: PERM5CRE3 TP (16:25)
== END 2022-04-15 16:15 | disposition home or self-care (01) | DRG 280 ==
LOC: MED 22:06 → MTU 04-01 02:21
PROVIDERS: ADMIT Student in an Organized Health Care Education/Training Program; ATTEND Student in an Organized Health Care Education/Training Program
PROC: 5A09457 Assistance with Respiratory Ventilation, 24-96 Consecutive Hours, Continuous Positive Airway Pressure (ICD-10-PCS; principal; 2022-04-01)
PROC: 5A09457 Assistance with Respiratory Ventilation, 24-96 Consecutive Hours, Continuous Positive Airway Pressure (ICD-10-PCS; 2022-04-04)
PROC: 5A09557 Assistance with Respiratory Ventilation, Greater than 96 Consecutive Hours, Continuous Positive Airway Pressure (ICD-10-PCS; 2022-04-07)
DX: I13.0 Hypertensive heart and chronic kidney disease with heart failure and stage 1 through stage 4 chronic kidney disease, or unspecified chronic kidney disease (principal); I21.4 Non-ST elevation (NSTEMI) myocardial infarction; E43 Unspecified severe protein-calorie malnutrition; I50.23 Acute on chronic systolic (congestive) heart failure; N17.0 Acute kidney failure with tubular necrosis; Z68.43 Body mass index [BMI] 50.0-59.9, adult; M46.26 Osteomyelitis of vertebra, lumbar region; N18.4 Chronic kidney disease, stage 4 (severe); D61.818 Other pancytopenia; R06.03 Acute respiratory distress; K21.9 Gastro-esophageal reflux disease without esophagitis; D50.9 Iron deficiency anemia, unspecified; Z20.822 Contact with and (suspected) exposure to COVID-19; E83.39 Other disorders of phosphorus metabolism; I44.7 Left bundle-branch block, unspecified; I25.10 Atherosclerotic heart disease of native coronary artery without angina pectoris; I35.0 Nonrheumatic aortic (valve) stenosis; G47.33 Obstructive sleep apnea (adult) (pediatric); L29.9 Pruritus, unspecified; E66.01 Morbid (severe) obesity due to excess calories; E11.22 Type 2 diabetes mellitus with diabetic chronic kidney disease; E11.51 Type 2 diabetes mellitus with diabetic peripheral angiopathy without gangrene; E11.69 Type 2 diabetes mellitus with other specified complication; B95.61 Methicillin susceptible Staphylococcus aureus infection as the cause of diseases classified elsewhere; M46.46 Discitis, unspecified, lumbar region; B86 Scabies; E78.5 Hyperlipidemia, unspecified; Z88.1 Allergy status to other antibiotic agents; Z79.899 Other long term (current) drug therapy; Z89.512 Acquired absence of left leg below knee; Z87.891 Personal history of nicotine dependence; Z86.718 Personal history of other venous thrombosis and embolism; Z79.82 Long term (current) use of aspirin; Z79.891 Long term (current) use of opiate analgesic; I25.2 Old myocardial infarction
CPT/HCPCS: 36415; 71045; 76700; 80048; 80053; 80305; 81003; 82150; 82948; 83036; 83690; 83735; 83880; 84100; 84484; 85025; 85610; 85730; 86140; 87040; 87081; 87205; 93005; 94003; 94660; 94664; 96374; 96375; 96376; 97110; 97112; 97116; 97163-GP; 97530; 99291; J1815; J1940; J2270; J3490; J7060; Q0092